=== PATIENT | female | born 1940 | race Caucasian/White ===

== ENCOUNTER 2017-08-17 16:48 | Inpatient (IN) | payer OTHER ==
[~2017-08-17] VITALS: Ht 160 cm; Wt 92.7 kg
[~2017-08-17 16:48] MED LIST: ABAT250V; ACET325 PO; ACET500 PO; ALBU90OI INH; ALBU90OI6 INH; ALLO100 PO; ALUM-MAG HYDRO360 ML PO; AMOX250 PO; ASPI81CH PO; Actos PO; CALACE667G PO; CALC.25 PO; CALCIUM ACETATE PO; CINA30 PO; CLAR500 PO; CYAN1000 PO; Calcium Carbon500 M1 PO; DIOVA; ELIQUIS2.5 MG PO; ERGO400 PO; FURO20 PO; FURO80 PO; GABA100 PO; GUAI600T33 PO; HUMALOG; INSLI100I SC; INSLI100I SUBQ; INSULANI SC; INSULANI SUBQ; INSULANPEN SC; LANTUS; LEVO750 PO; LEVSOD100 PO; LEVSOD75 PO; LISI5 PO; LOVA40 PO; Levaquin500 MG PO; Lopressor 25 mg25 MG PO; MAGCHL64ER PO; MAGNESIUM CHLORIDE PO; MIDO2.5 PO; MIDO5 PO; MULVITB PO; MYCO250 PO; Novolog100 UNIT/1 SC; OMEPRAZOLE; OMEPRAZOLE MAGN20 MG PO; OXYC5 PO; PANT20 PO; PRED5 PO; Pepcid40 MG PO; Questran4 GM PO; RXHYD5325 PO; SEVE800 PO; SEVEC800; SEVEC800 PO; SODBIC650 PO; Synthroid112 MCG PO; TACR1 PO; THYROID; Zithromax250 MG PO
[2017-08-17 17:45] LABS: BASOPHILS ABSOLUTE AUTO 0.01 K/mm3 (0.00-0.23); BASOPHILS PERCENT AUTO 0 % (0-2); EOSINOPHILS PERCENT AUTO 0 % (0-6); Hematocrit 29.4 % (33.0-51.0); IMMATURE GRAN PERCENT AUTO 4 % (0-1); LYMPHOCYTES ABSOLUTE AUTO 0.15 K/mm3 (0.84-5.20); LYMPHOCYTES PERCENT AUTO 2 % (21-46); MONOCYTES ABSOLUTE AUTO 0.16 K/mm3 (0.16-1.47); MONOCYTES PERCENT AUTO 2 % (4-13); Mean Corpuscular HGB 26.6 pg (26.0-34.0); Mean Corpuscular HGB Conc 30.6 g/dL (31.5-36.5); Mean Corpuscular Volume 87 fL (80-100); Mean Platelet Volume 10.5 fL (9.1-12.4); NEUTROPHILS ABSOLUTE AUTO 6.33 K/mm3 (1.96-9.15); NEUTROPHILS PERCENT AUTO 91 % (41-73); Platelet Count 236 K/mm3 (150-400); RDW Standard Deviation 56.7 fL (35.1-46.3); Red Blood Cell Count 3.38 M/mm3 (3.80-5.20); White Blood Cell Count 6.95 K/mm3 (4.00-11.30)
[2017-08-17 17:57] LABS: Source, Urine Clean Catch
[2017-08-17 18:07] LABS: Appearance, Urine Hazy (Clear); Bilirubin, Urine Neg (Neg); Blood, Urine 1+ (Neg); Color, Urine Yellow (P-Yellow); Glucose Qualitative, Urine Neg (Neg); Ketones, Urine Neg (Neg); Leukocyte Esterase, Urine 3+ (Neg); Nitrite, Urine Neg (Neg); Protein, Urine 2+ (Neg); Specific Gravity, Urine 1.015 (1.003-1.022); Urobilinogen, Urine NORM (Normal)
[2017-08-17 18:28] LABS: Alanine Aminotransfer (ALT/SGP 22 U/L (12-78); Albumin/Globulin Ratio 0.9 (0.8-1.8); Alk Phos 59 U/L (50-136); Anion Gap 16 mmol/L (6-16); Aspartate Aminotrans (AST/SGOT 9 U/L (12-37); Bilirubin, Total 0.3 mg/dL (0.1-1.0); Blood Urea Nitrogen 87 mg/dL (8-24); CO2, Blood 11 mmol/L (21-32); Calcium, Blood <5.0 mg/dL (8.5-10.1); Chloride, Blood 110 mmol/L (98-108); Creatinine, Blood 4.84 mg/dL (0.40-1.00); Globulin, Blood 3.2 g/dL (2.2-4.0); Glomerular Filtration Rate 9 (60-); Glucose, Blood 287 mg/dL (70-99); Magnesium, Blood 1.1 mg/dL (1.6-2.4); Phosphorus, Blood 4.9 mg/dL (2.5-4.9); Potassium, Blood 4.7 mmol/L (3.5-5.5); Sodium, Blood 137 mmol/L (136-145); Total Protein, Blood 6.2 g/dL (6.4-8.2)
[2017-08-17 18:31] LABS: Bacteria Many /hpf; Red Blood Cells, Urine 0-2 /hpf (0-2); Squamous Epithelial Cells Not Seen /hpf (Few); White Blood Cells, Urine TNTC /hpf (0-5)
[2017-08-17 21:56] LABS: Prothrombin Time Results 60.5 Sec (9.7-11.5)
[2017-08-17 22:15] LABS: International Normalized Ratio 5.52
[2017-08-17] MEDS ORDERED: FEBU40TA PO (23:19)
[2017-08-17] MEDS ORDERED: COLCRYS0.6 MG PO (23:20)
[2017-08-17] MEDS ORDERED: TACR1 PO (23:21)
[2017-08-17] MEDS ORDERED: GABA300 PO (23:22)
[2017-08-17] MEDS ORDERED: FOLI1 PO (23:23)
[2017-08-17] MEDS ORDERED: POTCHL10ER PO (23:23)
[2017-08-18 05:55] LABS: Prothrombin Time Results 73.3 Sec (9.7-11.5)
[2017-08-18 05:56] LABS: International Normalized Ratio 6.65
[2017-08-18 06:00] LABS: Creatinine, Urine Random 43.3 mg/dL (27.00-270.00)
[2017-08-18 06:13] LABS: Bun/Creatinine Ratio 18.6 (12.0-20.0); Creatinine, Blood 4.63 mg/dL (0.40-1.00); Potassium, Blood 4.5 mmol/L (3.5-5.5)
[2017-08-18 06:14] LABS: Calcium, Blood 5.3 mg/dL (8.5-10.1)
[2017-08-19 05:13] LABS: Hematocrit 24.4 % (33.0-51.0); Hemoglobin 7.6 g/dL (11.5-16.0)
[2017-08-19 05:32] LABS: Magnesium, Blood 1.6 mg/dL (1.6-2.4)
[2017-08-19 05:37] LABS: Prothrombin Time Results 59.9 Sec (9.7-11.5)
[2017-08-19 05:42] LABS: Albumin, Blood 2.5 g/dL (3.4-5.0); Anion Gap 12 mmol/L (6-16); Blood Urea Nitrogen 82 mg/dL (8-24); Bun/Creatinine Ratio 19.8 (12.0-20.0); CO2, Blood 19 mmol/L (21-32); Chloride, Blood 109 mmol/L (98-108); Creatinine, Blood 4.14 mg/dL (0.40-1.00); Glomerular Filtration Rate 11 (60-); Glucose, Blood 114 mg/dL (70-99); Phosphorus, Blood 3.7 mg/dL (2.5-4.9); Potassium, Blood 4.1 mmol/L (3.5-5.5); Sodium, Blood 140 mmol/L (136-145)
[2017-08-19 05:43] LABS: Calcium, Blood 5.5 mg/dL (8.5-10.1)
[2017-08-19 05:52] LABS: International Normalized Ratio 5.46
[2017-08-20 05:29] LABS: Hematocrit 26.2 % (33.0-51.0); Hemoglobin 8.2 g/dL (11.5-16.0)
[2017-08-20 05:47] LABS: International Normalized Ratio 2.6; Prothrombin Time Results 27.9 Sec (9.7-11.5)
[2017-08-20 05:51] LABS: Albumin, Blood 2.6 g/dL (3.4-5.0); Anion Gap 9 mmol/L (6-16); Blood Urea Nitrogen 76 mg/dL (8-24); Bun/Creatinine Ratio 22.4 (12.0-20.0); CO2, Blood 24 mmol/L (21-32); Calcium, Blood 6.7 mg/dL (8.5-10.1); Chloride, Blood 105 mmol/L (98-108); Glomerular Filtration Rate 14 (60-); Glucose, Blood 121 mg/dL (70-99); Magnesium, Blood 1.6 mg/dL (1.6-2.4); Phosphorus, Blood 2.7 mg/dL (2.5-4.9); Potassium, Blood 4.5 mmol/L (3.5-5.5); Sodium, Blood 138 mmol/L (136-145)
[2017-08-20 13:57] LABS: CMV DNA PCR Not Detected (NOTDET)
[2017-08-21 06:06] LABS: Hematocrit 27.8 % (33.0-51.0); Hemoglobin 8.6 g/dL (11.5-16.0)
[2017-08-21 06:20] LABS: International Normalized Ratio 1.76; Prothrombin Time Results 18.6 Sec (9.7-11.5)
[2017-08-21 06:27] LABS: Albumin, Blood 2.7 g/dL (3.4-5.0); Anion Gap 8 mmol/L (6-16); Blood Urea Nitrogen 62 mg/dL (8-24); Bun/Creatinine Ratio 21.7 (12.0-20.0); CO2, Blood 27 mmol/L (21-32); Calcium, Blood 7.6 mg/dL (8.5-10.1); Chloride, Blood 106 mmol/L (98-108); Creatinine, Blood 2.86 mg/dL (0.40-1.00); Glomerular Filtration Rate 17 (60-); Glucose, Blood 78 mg/dL (70-99); Magnesium, Blood 1.6 mg/dL (1.6-2.4); Phosphorus, Blood 1.7 mg/dL (2.5-4.9); Potassium, Blood 4.5 mmol/L (3.5-5.5); Sodium, Blood 141 mmol/L (136-145)
[2017-08-21] MEDS ORDERED: CEPH500 PO (11:41)
[2017-08-21] MEDS ORDERED: CALCIUM 500 +1 EAC3 PO (11:41)
[2017-08-21] MEDS ORDERED: WARF2 PO (11:42)
== END 2017-08-21 12:08 | disposition home or self-care (01) | DRG 683 ==
LOC: ER 16:48 → MEDS 18:40 → ENPENDDIS 08-21 11:00 → MEDS 08-21 12:08
PROVIDERS: Emergency Medicine; Internal Medicine; Internal Medicine Nephrology
DX: N17.9 Acute kidney failure, unspecified (principal); N39.0 Urinary tract infection, site not specified; E11.22 Type 2 diabetes mellitus with diabetic chronic kidney disease; E87.2 Acidosis; I48.0 Paroxysmal atrial fibrillation; E87.70 Fluid overload, unspecified; E88.09 Other disorders of plasma-protein metabolism, not elsewhere classified; E86.9 Volume depletion, unspecified; E83.39 Other disorders of phosphorus metabolism; E83.42 Hypomagnesemia; E83.51 Hypocalcemia; Z94.0 Kidney transplant status; N03.8 Chronic nephritic syndrome with other morphologic changes; D63.8 Anemia in other chronic diseases classified elsewhere; E21.3 Hyperparathyroidism, unspecified; E03.9 Hypothyroidism, unspecified; E78.5 Hyperlipidemia, unspecified; N18.9 Chronic kidney disease, unspecified; Z79.01 Long term (current) use of anticoagulants; Z79.899 Other long term (current) drug therapy; Z79.4 Long term (current) use of insulin; Z79.52 Long term (current) use of systemic steroids; Z87.891 Personal history of nicotine dependence
CPT/HCPCS: 36415; 51701; 70450; 71045; 76770; 80048; 80053; 80069; 80197; 81001; 82570; 82947; 83735; 84100; 84540; 85014; 85018; 85025; 85610; 86644; 86645; 87077; 87086; 87186; 87496; 93005; 93010; 96365; 96367; 96368; 97110; 97116; 97161; 97530; 99285; G8978; G8979; J0610; J0696; J0881; J1815; J3475; J7030; J7060; J7507; J7517

== ENCOUNTER 2017-09-08 12:44 | Emergency (ER) | payer OTHER ==
[~2017-09-08] VITALS: Ht 160 cm; Wt 90.7 kg
[~2017-09-08 12:44] MED LIST changes: +CALCIUM 500 +1 EAC3 PO; +CEPH500 PO; +COLCRYS0.6 MG PO; +FEBU40TA PO; +FOLI1 PO; +GABA300 PO; +POTCHL10ER PO; +WARF2 PO
[2017-09-08 14:34] LABS: Prothrombin Time Results 148.7 Sec (9.7-11.5)
[2017-09-08 17:00] LABS: International Normalized Ratio No Calc
== END 2017-09-08 17:07 | disposition home or self-care (01) ==
LOC: ER 12:44
PROVIDERS: Physician Assistant
DX: R79.1 Abnormal coagulation profile (principal); E11.9 Type 2 diabetes mellitus without complications; Z79.899 Other long term (current) drug therapy; Z79.4 Long term (current) use of insulin; Z79.01 Long term (current) use of anticoagulants
CPT/HCPCS: 36415; 85610; 99283

== ENCOUNTER → 2017-11-25 | Outpatient (CLI) | payer OTHER | LOC: LAB 16:35 → LAB SHORT 16:35 | DX: L08.9 Local infection of the skin and subcutaneous tissue, unspecified (principal); L89.319 Pressure ulcer of right buttock, unspecified stage; L89.329 Pressure ulcer of left buttock, unspecified stage | CPT/HCPCS: 87070; 87077; 87186; 87205 ==

== ENCOUNTER → 2018-01-27 | Outpatient (CLI) | payer OTHER | END | disposition home or self-care (01) | LOC: LAB 17:06 → LAB SHORT 17:06 | DX: L98.499 Non-pressure chronic ulcer of skin of other sites with unspecified severity (principal) | CPT/HCPCS: 87070; 87077; 87147; 87186; 87205 ==

== ENCOUNTER → 2019-02-06 | Outpatient (CLI) | payer OTHER | END | disposition home or self-care (01) | LOC: LAB SHORT 10:46 → OLS 10:46 | DX: E11.59 Type 2 diabetes mellitus with other circulatory complications (principal) | CPT/HCPCS: 82043 ==

== ENCOUNTER 2020-01-29 21:18 | Observation (INO) | payer OTHER ==
[~2020-01-29] VITALS: Ht 160 cm; Wt 86.4 kg
[~2020-01-29 21:18] MED LIST changes: +ALLEGRA ALLERGY60 MG PO; +Ativan1 MG PO; +BASAGLAR K100 UNIT/1 SC; +Calcium Acetat667 MG PO; -ERGO400 PO; -FEBU40TA PO; +FEBUXOSTAT80 MG PO; +Flonase 0.05% N16 GM; +LEVSOD112 PO; +NOVOLOG FL100 UNIT/3 SC; -Novolog100 UNIT/1 SC; +TACROLIMUS1 MG PO; +Vitamin D2000 UNIT PO
[2020-01-29 22:32] LABS: BASOPHILS ABSOLUTE AUTO 0.03 K/mm3 (0.00-0.23); BASOPHILS PERCENT AUTO 0 % (0-2); EOSINOPHILS ABSOLUTE AUTO 0.21 K/mm3 (0.00-0.68); EOSINOPHILS PERCENT AUTO 2 % (0-6); Hematocrit 39.6 % (33.0-51.0); Hemoglobin 12.4 g/dL (11.5-16.0); IMMATURE GRAN ABSOLUTE AUTO 0.03 K/mm3 (0.00-0.10); IMMATURE GRAN PERCENT AUTO 0 % (0-1); LYMPHOCYTES ABSOLUTE AUTO 0.63 K/mm3 (0.84-5.20); LYMPHOCYTES PERCENT AUTO 7 % (21-46); MONOCYTES ABSOLUTE AUTO 0.55 K/mm3 (0.16-1.47); MONOCYTES PERCENT AUTO 6 % (4-13); Mean Corpuscular HGB 30.5 pg (26.0-34.0); Mean Corpuscular HGB Conc 31.3 g/dL (31.5-36.5); Mean Corpuscular Volume 97 fL (80-100); NEUTROPHILS ABSOLUTE AUTO 7.81 K/mm3 (1.96-9.15); NEUTROPHILS PERCENT AUTO 84 % (41-73); Platelet Count 181 K/mm3 (150-400); RDW Coefficient Variation 15.8 % (11.7-14.2); RDW Standard Deviation 56.5 fL (35.1-46.3); Red Blood Cell Count 4.07 M/mm3 (3.80-5.20); White Blood Cell Count 9.26 K/mm3 (4.00-11.30)
[2020-01-29 22:52] LABS: Alanine Aminotransfer (ALT/SGP 14 U/L (12-78); Albumin, Blood 3.1 g/dL (3.4-5.0); Albumin/Globulin Ratio 0.9 (0.8-1.8); Alk Phos 56 U/L (50-136); Anion Gap 8 mmol/L (6-16); Aspartate Aminotrans (AST/SGOT 12 U/L (12-37); Bilirubin, Total 0.5 mg/dL (0.1-1.0); Blood Urea Nitrogen 50 mg/dL (8-24); Bun/Creatinine Ratio 9.7 (12.0-20.0); CO2, Blood 29 mmol/L (21-32); Calcium, Blood 8.8 mg/dL (8.5-10.1); Chloride, Blood 100 mmol/L (98-108); Creatinine, Blood 5.13 mg/dL (0.40-1.00); Globulin, Blood 3.6 g/dL (2.2-4.0); Glomerular Filtration Rate 9 (60-); Glucose, Blood 160 mg/dL (70-99); Magnesium, Blood 2.3 mg/dL (1.6-2.4); Potassium, Blood 4.6 mmol/L (3.5-5.5); Sodium, Blood 137 mmol/L (136-145); Total Protein, Blood 6.7 g/dL (6.4-8.2); Troponin I <0.015 ng/mL (0.000-0.040)
[2020-01-29] MEDS ORDERED: MIDO5 (23:16)
--- NOTE | 2020-01-30 05:18 | NUR ---
SHIFT SUMMARY PT ARRIVED FROM ER VIA STRETCHER; SLIDER SHEET USED TO TRANSFER PT TO BED; DAUGHTER AT BEDSIDE; PT A&O X4; NIKOLSKI AND VISUALLY IMPAIRED; VSS; NSR & AFIB NOTED ON TELE; HR 70'S; PT HAS HX AFIB & HEART MURMUR; O2 SATS >93 ON 4L NC; PT EDUCATED ON FALL PRECAUTIONS, UNIT PROTOCOL & CALL LIGHT; NS INFUSING @ 75; CALL LIGHT IN REACH; BED IN LOWEST POSITION; WILL CONTINUE TO MONITOR CLOSELY UNTIL HAND OFF TO DAY SHIFT RN.
[2020-01-30 07:02] LABS: BASOPHILS ABSOLUTE AUTO 0.05 K/mm3 (0.00-0.23); BASOPHILS PERCENT AUTO 0 % (0-2); EOSINOPHILS PERCENT AUTO 1 % (0-6); Hematocrit 38.1 % (33.0-51.0); Hemoglobin 11.8 g/dL (11.5-16.0); IMMATURE GRAN ABSOLUTE AUTO 0.07 K/mm3 (0.00-0.10); IMMATURE GRAN PERCENT AUTO 1 % (0-1); LYMPHOCYTES ABSOLUTE AUTO 1.04 K/mm3 (0.84-5.20); LYMPHOCYTES PERCENT AUTO 7 % (21-46); MONOCYTES ABSOLUTE AUTO 1.16 K/mm3 (0.16-1.47); MONOCYTES PERCENT AUTO 8 % (4-13); Mean Corpuscular Volume 97 fL (80-100); Mean Platelet Volume 9.9 fL (9.1-12.4); NEUTROPHILS ABSOLUTE AUTO 11.46 K/mm3 (1.96-9.15); NEUTROPHILS PERCENT AUTO 82 % (41-73); Platelet Count 162 K/mm3 (150-400); RDW Coefficient Variation 15.9 % (11.7-14.2); RDW Standard Deviation 56.9 fL (35.1-46.3); Red Blood Cell Count 3.93 M/mm3 (3.80-5.20); White Blood Cell Count 13.98 K/mm3 (4.00-11.30)
[2020-01-30 07:20] LABS: Alanine Aminotransfer (ALT/SGP 15 U/L (12-78); Albumin, Blood 2.8 g/dL (3.4-5.0); Albumin/Globulin Ratio 0.8 (0.8-1.8); Alk Phos 46 U/L (50-136); Anion Gap 8 mmol/L (6-16); Aspartate Aminotrans (AST/SGOT 12 U/L (12-37); Bilirubin, Total 0.6 mg/dL (0.1-1.0); Blood Urea Nitrogen 54 mg/dL (8-24); Bun/Creatinine Ratio 9.7 (12.0-20.0); CO2, Blood 29 mmol/L (21-32); CPK Creatine Kinase 18 U/L (26-193); Calcium, Blood 8.5 mg/dL (8.5-10.1); Chloride, Blood 99 mmol/L (98-108); Creatinine, Blood 5.59 mg/dL (0.40-1.00); Globulin, Blood 3.7 g/dL (2.2-4.0); Glomerular Filtration Rate 8 (60-); Glucose, Blood 154 mg/dL (70-99); Potassium, Blood 5.6 mmol/L (3.5-5.5); Sodium, Blood 136 mmol/L (136-145); Total Protein, Blood 6.5 g/dL (6.4-8.2); Troponin I <0.015 ng/mL (0.000-0.040)
[2020-01-30 15:11] LABS: CPK Creatine Kinase 71 U/L (26-193); Troponin I <0.015 ng/mL (0.000-0.040)
--- NOTE | 2020-01-30 19:47 | NUR ---
SUMMARY PT HAD DIALYSIS TODAY. SHE HAS C/O UPPER GASTRIC & SIDE PAIN THAT WAS RELIEVED BY MAALOX. PT DENIES BEING ABLE TO PASS GAS, REPORTS DECREASED APPETITE AND HAS REFUSED HER LANTUS. HYPOTENSION NOTED, SHE WAS MEDICATED PER EMAR ORDERED, PT ASYMPTOMATIC. FAMILY IS AT THE BEDSIDE. CALL LIGHT IN REACH.
[2020-01-31 04:22] LABS: Hematocrit 33.2 % (33.0-51.0); Hemoglobin 10.2 g/dL (11.5-16.0)
[2020-01-31 04:42] LABS: Albumin, Blood 2.6 g/dL (3.4-5.0); Anion Gap 8 mmol/L (6-16); Blood Urea Nitrogen 43 mg/dL (8-24); Bun/Creatinine Ratio 8.9 (12.0-20.0); CO2, Blood 30 mmol/L (21-32); Calcium, Blood 7.8 mg/dL (8.5-10.1); Chloride, Blood 94 mmol/L (98-108); Creatinine, Blood 4.84 mg/dL (0.40-1.00); Glomerular Filtration Rate 9 (60-); Glucose, Blood 105 mg/dL (70-99); Magnesium, Blood 2.5 mg/dL (1.6-2.4); Phosphorus, Blood 6.8 mg/dL (2.5-4.9); Potassium, Blood 4.6 mmol/L (3.5-5.5); Sodium, Blood 132 mmol/L (136-145)
--- NOTE | 2020-01-31 07:15 | NUR ---
SHIFT SUMMARY PT A&O; MILLE LACS & VISUALLY IMPAIRED; DAUGHER STAYED IN ROOM TO ASSIST; BP TRENDING UP; NSR NOTED ON TELE; O2 SATS >93 ON 4L NC; BLADDER SCAN PERFORMED EARLY IN SHIFT W/ 22ML NOTED; PO SNACKS & FLUIDS ENCOURAGED; CALL LIGHT IN REACH; BED IN LOWEST POSITION; REPORT GIVEN TO DAY SHIFT RN.
--- NOTE | 2020-01-31 13:28 | NUR ---
PT RETURNED FROM DIALYSIS C/O A HEADACHE & NAUSEA, HER VS ARE WITHIN HER NORMAL LIMITS, RESP UNLABORED AT THIS TIME. PCU FIRST OFFICER AND FLIGHT INSTRUCTOR AYESHA REPORTED THAT THE PT CONVERTED INTO AFIB WHILE IN DIALYSIS AT APROX 1115, THE RN WAS NOTIFIED, THE PT WAS SLEEPING & ASYMPTOMATIC AT THE TIME. SHE IS CURRENTLY RESTING IN BED, TYLENOL & ZOFRAN HAVE BEEN GIVEN PER PT REQUEST. HOSPITALIST HAS BEEN NOTIFIED OF CHANGE IN CONDITION, NO NEW ORDERS OBTAINED AT HTIS TIME. WCTM, PT'S DAUGHTER IS AT THE BEDSIDE, CALL LIGHT IN REACH.
--- NOTE | 2020-01-31 15:55 | NUR ---
UPDATE BP AT APPROXIMATELY 1500 IS 66/3 WITH HR 120'S. PT ALERT AND TALKING. DR. FORDE CALLED AND NOTIFIED. NEW ORDERS FOR 500ML BOLUS AND TO GIVE IV LOPRESSOR AFTER BOULS. BOLUS GIVEN AND BP IMPROVED WITH SBP >100. IV LOPRESSOR GIVEN. HR IMPROVED TO 100-110 AT THIS TIME. BP STABLE. WILL CONTINUE TO MONITOR CLOSELY.
--- NOTE | 2020-01-31 18:19 | NUR ---
UPDATE PT CONTINUES TO BE A&0, BP IS STABLE AT THIS TIME, PT REMAINS IN AFIB WITH HR BETWEEN 120'S-130'S. PT STATES HER HEADACHE IS IMPROVING, DENIES CP, SHE IS RELAXING IN BED VISITING WITH HER DAUGHTER, SHE IS GOING TO ATTEMPT TO EAT SOME DINNER. CALL LIGHT IN REACH. PT ENC TO CALL IF SHE FEELS ANY CHANGES, WCTM AND REPORT TO TYLER WALLACE.
[2020-02-01 04:20] LABS: Hematocrit 32.5 % (33.0-51.0); Hemoglobin 9.9 g/dL (11.5-16.0)
[2020-02-01 04:54] LABS: Magnesium, Blood 2.3 mg/dL (1.6-2.4)
[2020-02-01 04:55] LABS: Albumin, Blood 2.5 g/dL (3.4-5.0); Anion Gap 7 mmol/L (6-16); Blood Urea Nitrogen 31 mg/dL (8-24); Bun/Creatinine Ratio 7.5 (12.0-20.0); CO2, Blood 30 mmol/L (21-32); Calcium, Blood 7.5 mg/dL (8.5-10.1); Chloride, Blood 98 mmol/L (98-108); Creatinine, Blood 4.11 mg/dL (0.40-1.00); Glomerular Filtration Rate 11 (60-); Glucose, Blood 96 mg/dL (70-99); Phosphorus, Blood 5.6 mg/dL (2.5-4.9); Potassium, Blood 4.2 mmol/L (3.5-5.5); Sodium, Blood 135 mmol/L (136-145)
--- NOTE | 2020-02-01 04:55 | NUR ---
NOTIFIED DR CURRIE OF PT C/O NEW ONSET ABDOMINAL PAIN (01/16). DENIES N/V. LAST BM 01/30. PAINT TO PALPATION. POSITIVE BOWEL SOUNDS
--- NOTE | 2020-02-01 06:51 | NUR ---
patient was admitted for chest pain and was ruled out for pericarditis and a PE. The patient's blood pressure's were normal low and at times just under normal limit with systolic blood pressure's in the 80s. Overall the patient maintained her blood pressure and this improved by the end of the night. The patient did have an acute event of abdominal pain in the right lower quadrant, which Dr. Quezada was notified. I'll suggest for dayshift to keep a close eye on this new onset of pain and consider a CT if there is no improvement. Patient denied N/V and has had a recent bowel movement. No other changes overnight.
--- NOTE | 2020-02-01 08:45 | NUR ---
INITIAL ASSESSMENT PATIENT RESTING IN BED QUIETLY UPON ENTERING ROOM. DAUGHTER AT BEDSIDE. PATIENT ALERT AND ORIENTED X 4. TEMP OF 99.2 DEGREES FAHRENHEIT. PATIENT REPORTS TINGLING IN HANDS. PATIENT WEAK BUT ABLE TO MOVE ALL EXTREMITIES. PATIENT 1 PA WITH FWW. LUNGS CLEAR T/O, DIMINISHED IN LOWER LOBES. PATIENT DECREASED FROM 3 L NC TO 2 L NC AND REMAINS SATTING 90% AND GREATER. PATIENT IN SR, HR IN THE 70S. BP 92/40. GI WNL. PATIENT OLIGURIC; STATES SHE MAY URINATE ONCE A DAY. BRUISES SCATTERED TO BUES. LEFT UPPER ARM FISTULA NOTED; + BRUIT AND THRILL. COCCYX REDDENED AND ULCER NOTED. MEPILEX CLEAN/ DRY/ INTACT. IVS FLUSHED AND SALINE LOCKED. BED LOW, CALL LIGHT IN REACH. WILL CONTINUE TO MONITOR PATIENT T/O SHIFT.
--- NOTE | 2020-02-01 12:15 | NUR ---
PATIENT AFEBRILE. PATIENT DECREASED TO 1 L NC AND REMAINS SATTING 90% AND GREATER. BP 108/ 57, HR IN THE 70S. NO OTHER ACUTE CHANGES TO NOTE ON AT THIS TIME.
--- NOTE | 2020-02-01 15:35 | NUR ---
PATIENT AFEBRILE. HR 70. SBP 105/50. SATTING 90% AND GREATER ON 1 L NC. NO OTHER ACUTE CHANGES TO NOTE ON AT THIS TIME. WILL CONTINUE TO MONITOR.
--- NOTE | 2020-02-01 18:45 | NUR ---
SHIFT SUMMARY PATIENT REMAINED ALERT AND ORIENTED X 4 T/O SHIFT. PATIENT HAD TMAX OF 99.2 DEGREES FAHRENHEIT. PATIENT REMAINED 1 PA WITH FWW. PATIENT DECREASED FROM 3 L NC AT BEGINNING OF SHIFT TO 1 L NC BY END OF SHIFT. TRIED TO TITRATE DOWN TO RA BUT WOULD NOT REMAIN 90% AND ABOVE ON O2 SATURATIONS. PATIENT REMAINED IN SR, HR IN THE 70S. SBP 90S TO LOW 100S. PATIENT HAD SOFT, BROWN BM THIS SHIFT. PATIENT HAD POOR APPETITE. PATIENT OLIGURIC. PATIENT STATED THAT SHE DID VOID ONCE TODAY. NO CHANGE TO SKIN. PATIENT REPOSITIONED THROUGHOUT SHIFT. BED LOW, CALL LIGHT IN REACH, DAUGHTER AT BEDSIDE. PATIENT HAS NO COMPLAINTS AT THIS TIME. REPORT WILL BE GIVEN TO ONCOMING POWER SAW OPERATOR NURSE SHORTLY.
[2020-02-02 04:44] LABS: Hematocrit 30.8 % (33.0-51.0); Hemoglobin 9.5 g/dL (11.5-16.0)
[2020-02-02 05:09] LABS: Albumin, Blood 2.4 g/dL (3.4-5.0); Anion Gap 10 mmol/L (6-16); Blood Urea Nitrogen 45 mg/dL (8-24); Bun/Creatinine Ratio 7.9 (12.0-20.0); CO2, Blood 27 mmol/L (21-32); Calcium, Blood 7.6 mg/dL (8.5-10.1); Chloride, Blood 96 mmol/L (98-108); Creatinine, Blood 5.68 mg/dL (0.40-1.00); Glomerular Filtration Rate 8 (60-); Glucose, Blood 91 mg/dL (70-99); Magnesium, Blood 2.4 mg/dL (1.6-2.4); Phosphorus, Blood 6.4 mg/dL (2.5-4.9); Potassium, Blood 4.3 mmol/L (3.5-5.5); Sodium, Blood 133 mmol/L (136-145)
--- NOTE | 2020-02-02 06:51 | NUR ---
patient was admitted for chest pain and was ruled out for pericarditis and a PE. The patient was normotensive all shift. Overall the patient maintained her blood pressure and this improved by the end of the night. No other changes overnight. No acute changes. Plan is for patient to have dialysis today.
[2020-02-02] MEDS ORDERED: Amiodarone HCl200 MG PO (13:11)
[2020-02-02] MEDS ORDERED: ELIQUIS2.5 MG PO (13:12)
--- NOTE | 2020-02-02 17:09 | NUR ---
DISCHARGE SUMMARY PT A&Ox3; CALM AND COOPERATIVE WITH CARE. PT RESTING IN BED DURING SHIFT. UP TO BSC WITH 1 PERSON ASSIST WITH WALKER. PT REPORTS NULL T/O SHIFT; MEDICATED x2 WITH TYLENOL WITH POSITIVE RESULTS. PT SOB WITH EXERTION. PT SPO2 >90% ON RA; SPO2 86-87% ON RA WITH MINIMAL ACTIVITY; HOME O2 EVAL COMPLETED; PT PLACED ON 2L O2 VIA NC FOR ACTIVITY. [facility] DROPPED OFF PORTABLE O2 TANK FOR DISCHARGE. PT HAD DIALYSIS THIS AM. OTHER VSS. NO OTHER ACUTE CHANGES NOTED DURING SHIFT. PT AND DAUGHTER EDUCATED ON DISCHARGE INSTRUCTIONS, FOLLOW UP APPOINTMENTS AND MEDICATIONS (AMIODARONE TITRATION AND ELIQUIS ARE NEW). MEDICATED FAXED OVER TO [facility] PER DAUGHTER'S REQUEST. PT LEFT ROOM VIA WHEELCHAIR AT 1640.
== END 2020-02-02 16:40 | disposition home or self-care (01) ==
LOC: ER 21:18 → PCU 21:19
PROVIDERS: Emergency Medicine; Internal Medicine Nephrology; ADMIT Internal Medicine
DX: R07.89 Other chest pain (principal); I48.0 Paroxysmal atrial fibrillation; I35.0 Nonrheumatic aortic (valve) stenosis; I13.2 Hypertensive heart and chronic kidney disease with heart failure and with stage 5 chronic kidney disease, or end stage renal disease; I08.3 Combined rheumatic disorders of mitral, aortic and tricuspid valves; I37.1 Nonrheumatic pulmonary valve insufficiency; I27.20 Pulmonary hypertension, unspecified; E11.22 Type 2 diabetes mellitus with diabetic chronic kidney disease; N18.6 End stage renal disease; I50.32 Chronic diastolic (congestive) heart failure; J96.01 Acute respiratory failure with hypoxia; E03.9 Hypothyroidism, unspecified; D63.1 Anemia in chronic kidney disease; K21.9 Gastro-esophageal reflux disease without esophagitis; E78.5 Hyperlipidemia, unspecified; E83.42 Hypomagnesemia; Z99.2 Dependence on renal dialysis; Z94.0 Kidney transplant status; Z79.899 Other long term (current) drug therapy; Z79.4 Long term (current) use of insulin
CPT/HCPCS: 36415; 71046; 71275; 74175; 80053; 80069; 82550; 82947; 83605; 83690; 83735; 84443; 84484; 85014; 85018; 85025; 85379; 85651; 86141; 93005; 93010; 93306; 94761; 96361; 96372; 96374-59; 96375; 96375-59; 96376; 99285-25; A9270; A9270-GY; G0257; G0378; J0881; J1644; J2270; J2405; J3010; J7030; J7040; J7507; J7512; Q9967

== ENCOUNTER 2020-02-23 15:37 | Observation (INO) | payer OTHER ==
[~2020-02-23] VITALS: Ht 154.9 cm; Wt 85.3 kg
[~2020-02-23 15:37] MED LIST changes: +Amiodarone HCl200 MG PO; +FURO40 PO; +OMEP20ER PO; -OMEPRAZOLE MAGN20 MG PO
[2020-02-23 18:18] LABS: BASOPHILS ABSOLUTE AUTO 0.02 K/mm3 (0.00-0.23); BASOPHILS PERCENT AUTO 0 % (0-2); EOSINOPHILS PERCENT AUTO 1 % (0-6); Hematocrit 28.3 % (33.0-51.0); Hemoglobin 8.7 g/dL (11.5-16.0); IMMATURE GRAN ABSOLUTE AUTO 0.06 K/mm3 (0.00-0.10); IMMATURE GRAN PERCENT AUTO 1 % (0-1); LYMPHOCYTES ABSOLUTE AUTO 0.47 K/mm3 (0.84-5.20); LYMPHOCYTES PERCENT AUTO 6 % (21-46); MONOCYTES ABSOLUTE AUTO 0.68 K/mm3 (0.16-1.47); MONOCYTES PERCENT AUTO 9 % (4-13); Mean Corpuscular HGB 29.8 pg (26.0-34.0); Mean Corpuscular HGB Conc 30.7 g/dL (31.5-36.5); Mean Corpuscular Volume 97 fL (80-100); Mean Platelet Volume 9.8 fL (9.1-12.4); NEUTROPHILS ABSOLUTE AUTO 6.56 K/mm3 (1.96-9.15); NEUTROPHILS PERCENT AUTO 83 % (41-73); Platelet Count 150 K/mm3 (150-400); RDW Coefficient Variation 14.6 % (11.7-14.2); RDW Standard Deviation 51.8 fL (35.1-46.3); Red Blood Cell Count 2.92 M/mm3 (3.80-5.20); White Blood Cell Count 7.89 K/mm3 (4.00-11.30)
[2020-02-23 18:42] LABS: Alanine Aminotransfer (ALT/SGP 13 U/L (12-78); Albumin, Blood 2.9 g/dL (3.4-5.0); Albumin/Globulin Ratio 0.9 (0.8-1.8); Alk Phos 62 U/L (50-136); Anion Gap 9 mmol/L (6-16); Aspartate Aminotrans (AST/SGOT 8 U/L (12-37); Bilirubin, Total 0.3 mg/dL (0.1-1.0); Blood Urea Nitrogen 39 mg/dL (8-24); CO2, Blood 33 mmol/L (21-32); Calcium, Blood 8.7 mg/dL (8.5-10.1); Chloride, Blood 96 mmol/L (98-108); Globulin, Blood 3.3 g/dL (2.2-4.0); Glomerular Filtration Rate 16 (60-); Glucose, Blood 202 mg/dL (70-99); Potassium, Blood 3.7 mmol/L (3.5-5.5); Sodium, Blood 138 mmol/L (136-145); Total Protein, Blood 6.2 g/dL (6.4-8.2); Troponin I <0.015 ng/mL (0.000-0.040)
[2020-02-23] MEDS ORDERED: ALLEGRA ALLERGY60 MG PO (19:20)
[2020-02-23] MEDS ORDERED: FLUT.05NI (19:20)
--- NOTE | 2020-02-24 00:13 | NUR ---
CALL TO DR. DYER PER HIS REQUEST. NEW ORDERS FOR RENAL PANEL, H/H, MG+. ADD ARANESP 60MCG QOW AND HOLD FOR HCT >32. PT ADDED TO DR. DYER'S LIST TO BE SEEN.
[2020-02-24] MEDS ORDERED: Rena-Vite Tabl0.8 MG PO (01:42)
--- NOTE | 2020-02-24 05:19 | NUR ---
SHIFT SUMMARY: ER ADMIT. AAOX4. ABLE TO COMMUNICATE NEEDS. PT LEGALLY BLIND AND ACCOMPANIED BY HER DAUGHTER. REPORTS NECK PAIN 4/10 UPON ARRIVAL. STATES THIS IS TOLERABLE. K-PAD APPLIED TO UPPER SHOULDERS/NECK. ASSISTED PT W/POSITIONING FOR COMFORT. PT REPORTING NEW ONSET R HIP/R LOW BACK PAIN- REPOSITIONED. STATES PAIN IS DULL AND ACHEY AND FEELS MORE SUPERFICIAL. NO VISIBLE ABNORMALITIES ON SKIN IN THIS LOCATION. TORADOL GIVEN. PT STATES HELPS SOME. PT DENIES N/T IN HANDS, REPORTS NEUROPATHY AFFECTING FEET. NSR, 1ST DEGREE HEART BLOCK, RATE 64 PER TELE CRIME LAB TECHNICIAN. BRUIT AND THRILL PRESENT IN L ARM FISTULA SITE. NO ACUTE CONCERNS AT THIS TIME. WILL CONT TO MONITOR.
[2020-02-24 05:20] LABS: BASOPHILS ABSOLUTE AUTO 0.03 K/mm3 (0.00-0.23); BASOPHILS PERCENT AUTO 1 % (0-2); EOSINOPHILS ABSOLUTE AUTO 0.18 K/mm3 (0.00-0.68); EOSINOPHILS PERCENT AUTO 3 % (0-6); Hematocrit 27.8 % (33.0-51.0); Hemoglobin 8.4 g/dL (11.5-16.0); IMMATURE GRAN ABSOLUTE AUTO 0.05 K/mm3 (0.00-0.10); IMMATURE GRAN PERCENT AUTO 1 % (0-1); LYMPHOCYTES ABSOLUTE AUTO 0.94 K/mm3 (0.84-5.20); LYMPHOCYTES PERCENT AUTO 15 % (21-46); MONOCYTES ABSOLUTE AUTO 0.51 K/mm3 (0.16-1.47); MONOCYTES PERCENT AUTO 8 % (4-13); Mean Corpuscular HGB 29.6 pg (26.0-34.0); Mean Corpuscular HGB Conc 30.2 g/dL (31.5-36.5); Mean Corpuscular Volume 98 fL (80-100); Mean Platelet Volume 9.6 fL (9.1-12.4); NEUTROPHILS ABSOLUTE AUTO 4.74 K/mm3 (1.96-9.15); NEUTROPHILS PERCENT AUTO 73 % (41-73); Platelet Count 154 K/mm3 (150-400); RDW Coefficient Variation 14.7 % (11.7-14.2); RDW Standard Deviation 53.2 fL (35.1-46.3); Red Blood Cell Count 2.84 M/mm3 (3.80-5.20); White Blood Cell Count 6.45 K/mm3 (4.00-11.30)
[2020-02-24 05:44] LABS: Alanine Aminotransfer (ALT/SGP 9 U/L (12-78); Albumin, Blood 2.7 g/dL (3.4-5.0); Albumin/Globulin Ratio 0.8 (0.8-1.8); Alk Phos 40 U/L (50-136); Anion Gap 5 mmol/L (6-16); Aspartate Aminotrans (AST/SGOT 12 U/L (12-37); Bilirubin, Total 0.4 mg/dL (0.1-1.0); Blood Urea Nitrogen 46 mg/dL (8-24); Bun/Creatinine Ratio 12.2 (12.0-20.0); CO2, Blood 36 mmol/L (21-32); Calcium, Blood 8.1 mg/dL (8.5-10.1); Chloride, Blood 94 mmol/L (98-108); Creatinine, Blood 3.78 mg/dL (0.40-1.00); Globulin, Blood 3.3 g/dL (2.2-4.0); Glomerular Filtration Rate 12 (60-); Glucose, Blood 120 mg/dL (70-99); Magnesium, Blood 2.4 mg/dL (1.6-2.4); Sodium, Blood 135 mmol/L (136-145)
--- NOTE | 2020-02-24 18:39 | NUR ---
SHIFT SUMMARY PT A/O X4, PLEASANT AND COOPERATIVE WITH CARE. 1 ASSIST IN THE ROOM/BSC. OFTEN HAS LOW BP'S AND HAS MIDODRINE ORDERED. HAD DIALYSIS TODAY. HAD X RAY ON R HIP DUE TO NEW ONSET PAIN. K PAD TO NECK AND BACK AND MEDICATED PER EMR FOR PAIN. ON 2 L O2 VIA NC AT BASELINE. LEGALLY BLIND AND NELSON LAGO[place] IN THE R EAR. WILL CONTINUE TO MONITOR.
[2020-02-24] MEDS ORDERED: GABA300 PO (23:45)
--- NOTE | 2020-02-25 04:42 | NUR ---
SHIFT SUMMARY: VSS. AFEB. AAOX3. DAUGHTER AT BEDSIDE. SBP 95, MIDODRINE GIVEN PER ORDER. PT STATES BOTH NECK AND R HIP PAIN IMPROVED. MED W/ ULTRAM X1 AND K-PAD TO NECK. B TILE SPRAYER/PUSHES/PULLS ALL EQUAL. NEUROPATHY AFFECTING B HANDS AND FEET, PT DENIES NEW N/T. PT APPEARS TO HAVE SLEPT WELL MOST OF NIGHT. AV FISTULA TO R ARM W/+THRILL AND BRUIT. NO ACUTE CONCERNS AT THIS TIME. WILL CONT TO MONITOR.
[2020-02-25 05:22] LABS: Hematocrit 25.9 % (33.0-51.0); Hemoglobin 7.7 g/dL (11.5-16.0)
[2020-02-25 05:38] LABS: Albumin, Blood 2.6 g/dL (3.4-5.0); Anion Gap 4 mmol/L (6-16); Blood Urea Nitrogen 34 mg/dL (8-24); CO2, Blood 34 mmol/L (21-32); Calcium, Blood 7.8 mg/dL (8.5-10.1); Chloride, Blood 100 mmol/L (98-108); Creatinine, Blood 3.41 mg/dL (0.40-1.00); Glomerular Filtration Rate 14 (60-); Glucose, Blood 87 mg/dL (70-99); Magnesium, Blood 2.2 mg/dL (1.6-2.4); Phosphorus, Blood 3.7 mg/dL (2.5-4.9); Potassium, Blood 4.2 mmol/L (3.5-5.5); Sodium, Blood 138 mmol/L (136-145)
[2020-02-25] MEDS ORDERED: TRAM50 PO (11:51)
--- NOTE | 2020-02-25 13:07 | NUR ---
PATIENT DISCHARGED AT 1306 WITH HOME HEALTH
== END 2020-02-25 13:03 | disposition home health service (06) ==
LOC: ER 15:37 → MEDS 15:38 → ENPENDDIS 02-25 10:32 → MEDS 02-25 13:03
PROVIDERS: Internal Medicine Nephrology; Physician Assistant; ADMIT Internal Medicine
DX: M16.0 Bilateral primary osteoarthritis of hip (principal); I35.0 Nonrheumatic aortic (valve) stenosis; M47.812 Spondylosis without myelopathy or radiculopathy, cervical region; E11.22 Type 2 diabetes mellitus with diabetic chronic kidney disease; I13.2 Hypertensive heart and chronic kidney disease with heart failure and with stage 5 chronic kidney disease, or end stage renal disease; N18.6 End stage renal disease; I50.32 Chronic diastolic (congestive) heart failure; D63.1 Anemia in chronic kidney disease; F41.9 Anxiety disorder, unspecified; E03.9 Hypothyroidism, unspecified; E78.5 Hyperlipidemia, unspecified; E83.42 Hypomagnesemia; Z79.899 Other long term (current) drug therapy; Z79.01 Long term (current) use of anticoagulants; Z99.2 Dependence on renal dialysis; Z79.4 Long term (current) use of insulin; Z94.0 Kidney transplant status; I87.1 Compression of vein
CPT/HCPCS: 36415; 36430; 70498; 71046; 73502; 80053; 80069; 82947; 83735; 84100; 84484; 85014; 85018; 85025; 86850; 86900; 86901; 86923; 93005; 93010; 96374; 96375; 97110; 97162; 99285-25; A9270-GY; G0257; G0378; J0881; J1885; J7030; J7120; J7507; J7512; P9016; Q9967

== ENCOUNTER 2020-03-01 10:48 | Inpatient (IN) | payer OTHER ==
[~2020-03-01] VITALS: Ht 154.9 cm; Wt 94.2 kg
[~2020-03-01 10:48] MED LIST changes: +FLUT.05NI; +Rena-Vite Tabl0.8 MG PO; +TRAM50 PO
[2020-03-01] MEDS ORDERED: Meribin5 MG PO (12:04)
[2020-03-01 12:55] LABS: Chloride (POC) 93 mmol/L (98-108); Glucose (ISTAT POC) 122 mg/dL (70-99); Hemoglobin (POC) 5.8 g/dL (12.0-16.0); Potassium (POC) 3.4 mmol/L (3.5-5.5); Sodium (POC) 135 mmol/L (135-148); Total CO2 (POC) 30 mmol/L (21-32)
[2020-03-01 13:47] LABS: BASOPHILS ABSOLUTE AUTO 0.02 K/mm3 (0.00-0.23); BASOPHILS PERCENT AUTO 0 % (0-2); EOSINOPHILS PERCENT AUTO 3 % (0-6); Hematocrit 20.1 % (33.0-51.0); Hemoglobin 6.1 g/dL (11.5-16.0); IMMATURE GRAN ABSOLUTE AUTO 0.07 K/mm3 (0.00-0.10); IMMATURE GRAN PERCENT AUTO 1 % (0-1); LYMPHOCYTES ABSOLUTE AUTO 0.67 K/mm3 (0.84-5.20); LYMPHOCYTES PERCENT AUTO 9 % (21-46); MONOCYTES ABSOLUTE AUTO 0.47 K/mm3 (0.16-1.47); MONOCYTES PERCENT AUTO 7 % (4-13); Mean Corpuscular HGB 29.9 pg (26.0-34.0); Mean Corpuscular HGB Conc 30.3 g/dL (31.5-36.5); Mean Corpuscular Volume 99 fL (80-100); Mean Platelet Volume 10.1 fL (9.1-12.4); NEUTROPHILS ABSOLUTE AUTO 5.73 K/mm3 (1.96-9.15); NEUTROPHILS PERCENT AUTO 80 % (41-73); NRBC ABSOLUTE 0.02 K/mm3 (0.00-0.02); NRBC Auto 0.3 /100 WBC (0.0-0.2); Platelet Count 155 K/mm3 (150-400); RDW Coefficient Variation 16.1 % (11.7-14.2); RDW Standard Deviation 57.1 fL (35.1-46.3); Red Blood Cell Count 2.04 M/mm3 (3.80-5.20); White Blood Cell Count 7.16 K/mm3 (4.00-11.30)
[2020-03-01 14:01] LABS: Albumin, Blood 2.6 g/dL (3.4-5.0); Albumin/Globulin Ratio 0.9 (0.8-1.8); Bilirubin, Total 0.4 mg/dL (0.1-1.0); Bun/Creatinine Ratio 11.8 (12.0-20.0); Calcium, Blood 8.8 mg/dL (8.5-10.1); Creatinine, Blood 2.72 mg/dL (0.40-1.00); Globulin, Blood 2.9 g/dL (2.2-4.0); Potassium, Blood 3.4 mmol/L (3.5-5.5); Total Protein, Blood 5.5 g/dL (6.4-8.2)
[2020-03-01 14:04] LABS: International Normalized Ratio 1.02; Prothrombin Time Results 10.9 Sec (9.7-11.5)
[2020-03-01] MEDS ORDERED: NOVOLOG FL100 UNIT/3 SC (15:07)
--- NOTE | 2020-03-01 19:00 | NUR ---
ASSUMED CARE OF PATIENT. REC'D. REPORT FROM DAY SHIFT RN. PATIENT FINISHING SECOND UNIT OF PRBC'S. MAP 20-30'S. PATIENT RECEIVING NS BOLUS 500CC IV. DAYSHIFT RN CALLED RODRIGO PENDLETON; REC'D. ORDER FOR MIDODRINE 5MG PO NOW; STATES SHE WILL EVAL PATIENT. 1914: SECOND UNIT OF BLOOD FINISHED INFUSING. 1929: MAP NOW 50-60'S. LEWIS PENDLETON AT BEDSIDE. 1949: REPEAT CBC SENT. 2029: CALLED LEWIS PENDLETON WITH REPEAT CBC RESULTS; REC'D. ORDER FOR REPEAT CBC AT MIDNIGHT.
--- NOTE | 2020-03-01 19:35 | NUR ---
SUMMARY Assumed care of pt upon arrival to unit at 1710 from emergency department. Transferred from ED [facility] to ICU bed using slider sheet and three staff. Pt A&O x 2. Answers questions, follows commands, verbalizes needs. 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 Pt on 3 LPM NC, which is her baseline O2 use. Lungs clear t/o, dim in bases. SR per monitor. BP initially low/normal. Pt arrived with one unit PRBCs infusing. Second unit started. No signs of transfusion reaction. One smear bowel movement cleaned from pt. Dark brown. No fahad blood. No hematemesis. No adominal pain. Pt states she still produces urine, more urine on non-hemodialysis days. Pt has stage two pressure ulcer on left buttock. Photographed. Pt states this is an old, and she has had it for several years. Pt suddenly became hypotensive. Remains alert. Reports some dizziness. radio interference trouble shooter hospitalist, Milena, notified. Orders recevied for bolus. Admitting hosptialist also contacted, ordered more midodrine. Dr Hodges in to see pt. No additional orders from this provider. Report given to oncoming RN, Ivett. Pt's daughter, Margaret, assisted with admit. Pt lives with this daughter. Discussed code status with pt and daughter, who reinfored full code wishes. Discussed pt's POLST on record that states DNR, pt wishes to be full code at this time.
[2020-03-01 20:10] LABS: BASOPHILS ABSOLUTE AUTO 0.04 K/mm3 (0.00-0.23); BASOPHILS PERCENT AUTO 1 % (0-2); EOSINOPHILS ABSOLUTE AUTO 0.27 K/mm3 (0.00-0.68); EOSINOPHILS PERCENT AUTO 4 % (0-6); Hematocrit 24.3 % (33.0-51.0); Hemoglobin 7.7 g/dL (11.5-16.0); IMMATURE GRAN PERCENT AUTO 2 % (0-1); LYMPHOCYTES ABSOLUTE AUTO 0.78 K/mm3 (0.84-5.20); LYMPHOCYTES PERCENT AUTO 12 % (21-46); MONOCYTES ABSOLUTE AUTO 0.61 K/mm3 (0.16-1.47); MONOCYTES PERCENT AUTO 9 % (4-13); Mean Corpuscular HGB 30.7 pg (26.0-34.0); Mean Corpuscular HGB Conc 31.7 g/dL (31.5-36.5); Mean Corpuscular Volume 97 fL (80-100); Mean Platelet Volume 9.8 fL (9.1-12.4); NEUTROPHILS ABSOLUTE AUTO 4.82 K/mm3 (1.96-9.15); NEUTROPHILS PERCENT AUTO 73 % (41-73); NRBC ABSOLUTE 0.02 K/mm3 (0.00-0.02); NRBC Auto 0.3 /100 WBC (0.0-0.2); Platelet Count 127 K/mm3 (150-400); RDW Coefficient Variation 15.7 % (11.7-14.2); RDW Standard Deviation 53.6 fL (35.1-46.3); Red Blood Cell Count 2.51 M/mm3 (3.80-5.20); White Blood Cell Count 6.62 K/mm3 (4.00-11.30)
--- NOTE | 2020-03-01 21:16 | NUR ---
DR. PICKARD HERE TO SEE PATIENT.
[2020-03-02 00:27] LABS: BASOPHILS ABSOLUTE AUTO 0.04 K/mm3 (0.00-0.23); BASOPHILS PERCENT AUTO 1 % (0-2); EOSINOPHILS ABSOLUTE AUTO 0.28 K/mm3 (0.00-0.68); EOSINOPHILS PERCENT AUTO 4 % (0-6); Hematocrit 22.5 % (33.0-51.0); Hemoglobin 7.2 g/dL (11.5-16.0); IMMATURE GRAN ABSOLUTE AUTO 0.07 K/mm3 (0.00-0.10); IMMATURE GRAN PERCENT AUTO 1 % (0-1); LYMPHOCYTES ABSOLUTE AUTO 0.71 K/mm3 (0.84-5.20); LYMPHOCYTES PERCENT AUTO 10 % (21-46); MONOCYTES ABSOLUTE AUTO 0.59 K/mm3 (0.16-1.47); MONOCYTES PERCENT AUTO 9 % (4-13); Mean Corpuscular HGB 30.8 pg (26.0-34.0); Mean Corpuscular Volume 96 fL (80-100); Mean Platelet Volume 10.4 fL (9.1-12.4); NEUTROPHILS ABSOLUTE AUTO 5.19 K/mm3 (1.96-9.15); NEUTROPHILS PERCENT AUTO 75 % (41-73); NRBC ABSOLUTE 0.03 K/mm3 (0.00-0.02); NRBC Auto 0.4 /100 WBC (0.0-0.2); Platelet Count 133 K/mm3 (150-400); RDW Coefficient Variation 16.1 % (11.7-14.2); RDW Standard Deviation 54.8 fL (35.1-46.3); Red Blood Cell Count 2.34 M/mm3 (3.80-5.20); White Blood Cell Count 6.88 K/mm3 (4.00-11.30)
[2020-03-02 04:13] LABS: Hematocrit 21.2 % (33.0-51.0); Hemoglobin 6.7 g/dL (11.5-16.0); Mean Corpuscular HGB 30.5 pg (26.0-34.0); Mean Corpuscular HGB Conc 31.6 g/dL (31.5-36.5); Mean Corpuscular Volume 96 fL (80-100); NRBC ABSOLUTE 0.03 K/mm3 (0.00-0.02); NRBC Auto 0.4 /100 WBC (0.0-0.2); Platelet Count 129 K/mm3 (150-400); RDW Coefficient Variation 16.3 % (11.7-14.2); RDW Standard Deviation 55.5 fL (35.1-46.3)
--- NOTE | 2020-03-02 04:20 | NUR ---
CALLED DR. CURRIE WITH AM CBC RESULTS. REC'D. ORDER TO TRANSFUSE ONE UNIT OF PRBC'S.
[2020-03-02 04:29] LABS: Albumin, Blood 2.3 g/dL (3.4-5.0); Anion Gap 4 mmol/L (6-16); Blood Urea Nitrogen 53 mg/dL (8-24); Bun/Creatinine Ratio 14.1 (12.0-20.0); CO2, Blood 33 mmol/L (21-32); Calcium, Blood 8.5 mg/dL (8.5-10.1); Chloride, Blood 100 mmol/L (98-108); Creatinine, Blood 3.77 mg/dL (0.40-1.00); Glomerular Filtration Rate 12 (60-); Glucose, Blood 112 mg/dL (70-99); Magnesium, Blood 2.3 mg/dL (1.6-2.4); Phosphorus, Blood 2.9 mg/dL (2.5-4.9); Potassium, Blood 4.4 mmol/L (3.5-5.5); Sodium, Blood 137 mmol/L (136-145)
--- NOTE | 2020-03-02 06:23 | NUR ---
SHIFT SUMMARY: PATIENT SLEPT OFF AND ON DURING THE NIGHT. PATIENT C/O RLQ ABDOMINAL PAIN WHEN SHE TURNS OVER ONTO HER LEFT SIDE; STATES PAIN "LETS UP" WHEN SHE IS ON HER BACK. CBC DRAWN AT MIDNIGHT AND 0400; TRANSFUSING ONE UNIT OF PRBC'S PER MD ORDER. PATIENT HAD ONE BLACK, FORMED STOOL DURING THE NIGHT; DENIES NAUSEA. ANURIC. PROTONIX DRIP INFUSING AT 10CC/HR VIA IV TO RIGHT BREAST; SALINE LOCK TO RIGHT AC; POWERGLIDE TO RIGHT UPPER ARM. OXYGEN AT 2L/MIN VIA NASAL CANNULA; BREATH SOUNDS CLEAR TO BILATERAL UPPER LOBES. PER DR. PICKARD, PATIENT WILL HAVE EGD ON FRIDAY. AWAITING DAYSHIFT RN FOR HANDOFF.
--- NOTE | 2020-03-02 08:18 | NUR ---
Assumed care of pt at 0700. Bedside report received from Ivett WALLACE. Pt A&O x 4. Answers questions. Follows commands. Verbalizes needs. BP low-normal. Sinus rhythm, rate 60s. SpO2 90% or greater with 3 LPM NC. Fine crackles noted to RLL, RML, and LLL. Bed in lowest position. Call light in reach. Pt denies need at this time.
[2020-03-02 08:45] LABS: Hematocrit 24.4 % (33.0-51.0); Hemoglobin 7.8 g/dL (11.5-16.0)
--- NOTE | 2020-03-02 08:48 | NUR ---
Pt had a black, tarry smear BM. Attends changed. Wound to right buttock cleaned with Skintegrity skin cleanser and dressing changed.
[2020-03-02 12:03] LABS: Hematocrit 23.8 % (33.0-51.0); Hemoglobin 7.6 g/dL (11.5-16.0)
--- NOTE | 2020-03-02 13:01 | NUR ---
Pt visiting with daughter at bedside. No acute changes to initial assessment. Pt has protonix drip infusing at this time.
--- NOTE | 2020-03-02 13:30 | NUR ---
No additional melanotic stools. Discussed BP with Dr Nair, midodrine increased.
--- NOTE | 2020-03-02 17:49 | NUR ---
Initial spiritual care note: Mrs. Silva reports a strong, life-long juwan that sustains her. She feels well supported by her database designer and spiritism community. She denied concerns and expressed hope for full recovery. She was appreciaitve of prayer and spiritual encouragement. Artistic Director services will remain available.
--- NOTE | 2020-03-02 17:59 | NUR ---
SUMMARY Pt has not gotten OOB this shift due to hypotension. BP is improved this afternoon, after midodrine dose increased from 5 mg to 7.5 mg. SR per monitor. Pt remains on 3 LPM NC, which is her home oxygen use. Pt has not had urine void this shift. Will continue to closely monitor until care handoff and bedside report with oncoming RN.
[2020-03-02 18:07] LABS: Hematocrit 23.8 % (33.0-51.0); Hemoglobin 7.7 g/dL (11.5-16.0)
--- NOTE | 2020-03-02 19:15 | NUR ---
RECEIVING NOTE LYING IN SEMI FOWLERS WITH EYES CLOSED. AKIAK TO LEFT SIDE, AND IS LEGALLY BLIND, USES AN AMPLYFIER AND BOOKS ON TAPE PLAYER IN ONE. RESPIRATIONS EVEN AND UNLABORED ON O2 AT 3L/NC WHICH IS BASELINE. LUNG SOUNDS CLEAR BILATERALLY WITH FINE CRACKLES NOTED IN MIDDLE AND LOWER LOBES. MAINTAINING SP02 IN 90'S. HR REGULAR, SR-60'S RANGE. SL POWERGLIDE TO RIGHT UPPER ARM IS PATENT, FLUSHING WITH EASE AND GOOD BLOOD RETURN NOTED. ABD SOFT, NONDISTENDED, BUT TENDER TO PALPATION. CONTINENT OF BOWEL, USES BEDPAN. IS OLIGURIC, URINATES A SMALL AMOUNT OCCASIONALLY. REPORTED SMALL BM ON DAY SHIFT TODAY, DARK IN COLOR. IS TURNED Q2HRS FOR COMFORT. STAGE II PRESSURE ULCER TO RIGHT BUTTOCK NOTED WITH A FOUL SMELL. MEPILEX DRESSING IS C/D/I. WILL CHANGE PRN SOILING OR SATURATION. TO RIGHT DENIES PAIN, DISCOMFORT, OR FURTHER NEEDS AT THIS TIME. SAFETY MEASURES IN PLACE. WILL CONTINUE TO MONITOR.
--- NOTE | 2020-03-02 20:22 | NUR ---
DR PICKARD TO SEE PT. STATES SHE WILL HAVE EGD TOMORROW AFTERNOON. SAFETY MEASURES IN [place]. WILL CONTINUE TO MONITOR.
--- NOTE | 2020-03-02 20:30 | NUR ---
DR. PICKARD AT BEDSIDE WITH PT. EXPLAINED POC WITH EGD IN AM FOLLOWS...CLEAR LIQUID BREAKFAST, THEN WATER ONLY UNTIL 1400HRS, AT WHICH TIME SHE WILL NPO FOR PROCEDURE AT AROUND 1600HRS OR 1700HRS WHEN ROOM IS AVAILABLE. PT VERBALIZES UNDERSTANDING. SAFETY MEASURES IN PLACE. WILL CONTINUE TO MONITOR.
[2020-03-02 22:36] LABS: Hematocrit 23.4 % (33.0-51.0); Hemoglobin 7.5 g/dL (11.5-16.0)
[2020-03-03 04:20] LABS: BASOPHILS ABSOLUTE AUTO 0.04 K/mm3 (0.00-0.23); BASOPHILS PERCENT AUTO 0 % (0-2); EOSINOPHILS ABSOLUTE AUTO 0.34 K/mm3 (0.00-0.68); EOSINOPHILS PERCENT AUTO 4 % (0-6); Hematocrit 23.4 % (33.0-51.0); Hemoglobin 7.3 g/dL (11.5-16.0); IMMATURE GRAN ABSOLUTE AUTO 0.07 K/mm3 (0.00-0.10); IMMATURE GRAN PERCENT AUTO 1 % (0-1); LYMPHOCYTES ABSOLUTE AUTO 0.87 K/mm3 (0.84-5.20); LYMPHOCYTES PERCENT AUTO 9 % (21-46); MONOCYTES ABSOLUTE AUTO 0.67 K/mm3 (0.16-1.47); MONOCYTES PERCENT AUTO 7 % (4-13); Mean Corpuscular HGB 30.2 pg (26.0-34.0); Mean Corpuscular HGB Conc 31.2 g/dL (31.5-36.5); Mean Corpuscular Volume 97 fL (80-100); Mean Platelet Volume 9.5 fL (9.1-12.4); NEUTROPHILS ABSOLUTE AUTO 7.63 K/mm3 (1.96-9.15); NEUTROPHILS PERCENT AUTO 79 % (41-73); NRBC ABSOLUTE 0.02 K/mm3 (0.00-0.02); NRBC Auto 0.2 /100 WBC (0.0-0.2); Platelet Count 141 K/mm3 (150-400); RDW Coefficient Variation 16.7 % (11.7-14.2); RDW Standard Deviation 57.1 fL (35.1-46.3); Red Blood Cell Count 2.42 M/mm3 (3.80-5.20); White Blood Cell Count 9.62 K/mm3 (4.00-11.30)
[2020-03-03 04:35] LABS: Albumin, Blood 2.2 g/dL (3.4-5.0); Anion Gap 6 mmol/L (6-16); Blood Urea Nitrogen 81 mg/dL (8-24); Bun/Creatinine Ratio 16.6 (12.0-20.0); CO2, Blood 30 mmol/L (21-32); Calcium, Blood 8.3 mg/dL (8.5-10.1); Chloride, Blood 100 mmol/L (98-108); Creatinine, Blood 4.87 mg/dL (0.40-1.00); Glomerular Filtration Rate 9 (60-); Glucose, Blood 107 mg/dL (70-99); Magnesium, Blood 2.3 mg/dL (1.6-2.4); Phosphorus, Blood 3.5 mg/dL (2.5-4.9); Potassium, Blood 4.5 mmol/L (3.5-5.5); Sodium, Blood 136 mmol/L (136-145)
--- NOTE | 2020-03-03 06:39 | NUR ---
SHIFT SUMMARY LYING IN LOW FOWLERS WITH EYES CLOSED WHILE LISTENING TO BOOKS ON TAPE. AAO X3, TUCKER WEAKLY, FOLLOWS ALL COMMANDS. IMPROVED BP AND MAP NOTED AFTER REPOSITIONING BP CUFF TO RIGHT ANKLE. CLEAR LIQUID DIET UNTIL LUNCH, THE WATER ONLY TILL 2 PM, THEN NPO TILL EGD SCHEDULED BETWEEN 1600HRS AND 1700HRS TODAY. DENIES PAIN, DISCOMFORT, OR FURTHER NEEDS OR WANTS AT THIS TIME. SAFETY MEASURES IN PLACE. WILL CONTINUE TO MONITOR AND GIVE HAND OFF TO ONCOMING SHIFT USING SBAR.
--- NOTE | 2020-03-03 08:00 | NUR ---
pt sleeping in bed, wants to hold off on breakfast so she can continue to sleep, lungs are clear in upper silva, course to fine crackles in bases, resp even and unlabored, no cough noted, hrr, monitor in place running sr with first degree, see strip, no edema noted, ppp+1, cap refill <3sec, vs stable, afebrile, iv site is power glide to adamaris, site is clear and patent, btx4, abd flat soft nontender, voids very little, as she is a dialysis pt. [facility], skin has pressure sore to coccyx, with dressing in place, moves arms well, can wiggle feet, michelet, call light in reach.
--- NOTE | 2020-03-03 14:50 | NUR ---
dialysis is finished, pt has been repositioned, supported with pillows, states she is comfortable, is currently npo waiting for egd. daughter in room. call light in reach.
--- NOTE | 2020-03-03 16:40 | NUR ---
PT B/P IS IN THE 70'S, RECHECKED ON HER ARM, IN THE 80'S, CALL TO DR. PIMENTEL, SHE ASKED TO HAVE THE H&H ORDERED FOR 1800 DRAWN NOW, THIS WAS DONE, AND TO GIVE A 500ML BOLUS, THIS IS INFUSING. DAUGHTER IN ROOM, TURNED PT, WILL MONITOR, CALL LIGHT IN REACH.
--- NOTE | 2020-03-03 18:33 | NUR ---
STARTED TRANSFUSION PER ORDER, 1 UNIT, AFTER VERIFYING WITH A SECOND NURSE, AND V.S. OBTAINED, DAY SURG CALLED AND ARE GOING TO COME FOR HER PROCEDURE. DAUGHTER IN ROOM. DR. MARTÍNEZ IN ROOM TALKING TO PT. CALL LIGHT IN REACH.
--- NOTE | 2020-03-03 18:52 | NUR ---
B/P IN THE 90'S AT THIS TIME, DAY SURG NURSE CALLED AND SAID WOULD BY HERE SHORTLY TO DO EGD, NO FURTHER CHANGES THIS SHIFT. CALL LIGHT IN REACH.
--- NOTE | 2020-03-03 19:11 | NUR ---
GETTING PT READY IN ICU. History, Chart, Medications and Allergies reviewed before start of procedure. Lungs clear T/O to Auscultation. Patient confirms NPO status and agrees with scheduled surgery. Pre-Op teaching done. Pt verbalizes understanding.
--- NOTE | 2020-03-03 19:27 | NUR ---
03/03/201926 THOR LEACH History, Chart, Medications and Allergies reviewed before start of procedure. 3-LEAD EKG REVIEWED WITH PHYSICIAN PRIOR TO START OF PROCEDURE. O2 VIA N/C INTACT THROUGHOUT SEDATION/PROCEDURE. MONITOR INTACT WITH CONTINUOUS PULSE OXIMETRY AND INTERMITTENT BP. MAC WITH DR. MARTÍNEZ
--- NOTE | 2020-03-03 20:20 | NUR ---
ASSUMED PT CARE REPORT FROM LUDA RN AT 1907. ASSUMED PT CARE. PT ALERT AND ORIENTED. EGD COMPLETE BY DAY SURGERY STAFF AND DR PICKARD. PT DAUGHTER LILA AT BEDSIDE. PT RECEIVING BLOOD AT THIS TIME TO POWER GLIDE TO RIGHT UPPER ARM, SITE WNL, DRESSING C/D/I. PT HAS SALINE LOCK 20G TO RIGHT AC, SITE WNL, DRESSING C/D/I. PT HAS SITE TO RIGHT CHEST WITH PROTONIX INFUSING AT 10ML/HR. SITES WNL, DRESSING C/D/I. LUNG SOUND TO UPPER PATTEN CLEAR. LUNG SOUNDS TO BASES DIMINISHED WITH SCANT COARSENESS. SATS >92% ON 3L O2 PER NC. PT DENIES CURRENT SOB. BP LOW WITH MAPS 50-65. PROVIDERS ARE AWARE OF TRENDS. HR 60S, SR WITH 1ST BLOCK. PULSES PRESENT AND EQUAL. PT HAS FISTULA TO LEFT FA. SKIN C/D/I WITH BRUISING/ECCHYMOSIS TO EXT. ABD SOFT AND TENDER. BOWEL SOUNDS ACTIVE. PT OLIGURIC, CLEAN ATTENDS IN PLACE. CALL LIGHT IN REACH. SEE FULL SHIFT ASSESSMENT.
--- NOTE | 2020-03-04 00:30 | NUR ---
PROVIDER UPDATE DISCUSSED BP TREND WITH DR CURRIE, ORDERS FOR FLUIDS RECEIVED.
[2020-03-04 04:04] LABS: Hemoglobin 7.1 g/dL (11.5-16.0)
--- NOTE | 2020-03-04 04:05 | NUR ---
PROVIDER UPDATE DR CURRIE AND DR DYER AWARE OF PT BP TREND. ORDERS RECEIVED FOR MIDODRINE 10MG PO X1 AND TO CHANGE MIDODRINE FROM 7.5MG TID TO 10MG QID.
[2020-03-04 04:20] LABS: Anion Gap 7 mmol/L (6-16); Blood Urea Nitrogen 53 mg/dL (8-24); Bun/Creatinine Ratio 14.1 (12.0-20.0); CO2, Blood 30 mmol/L (21-32); Calcium, Blood 7.5 mg/dL (8.5-10.1); Chloride, Blood 104 mmol/L (98-108); Creatinine, Blood 3.75 mg/dL (0.40-1.00); Glomerular Filtration Rate 12 (60-); Glucose, Blood 97 mg/dL (70-99); Magnesium, Blood 2.1 mg/dL (1.6-2.4); Phosphorus, Blood 3.4 mg/dL (2.5-4.9); Potassium, Blood 3.9 mmol/L (3.5-5.5); Sodium, Blood 141 mmol/L (136-145)
--- NOTE | 2020-03-04 06:00 | NUR ---
PROVIDER UPDATE DISCUSSED LAB RESULTS AND CONTINUED HYPOTENSION WITH DR CURRIE. NO NEW ORDERS RECEIVED.
--- NOTE | 2020-03-04 06:16 | NUR ---
SHIFT SUMMARY PT REMAINS ALERT AND ORIENTED WHEN AWAKE. PARTICIPATES IN CARE SOMEWHAT. PT SKIN PALE, DRY AND FRAGILE. MEPILEX TO COCCYX C/D/I. PT HAS 20G TO RIGHT CHEST, SL, DRESSING C/D/I. PT HAS 20G TO RIGHT AC, SL, DRESSING C/D/I. PT HAS POWERGLIDE TO RIGHT UPPER ARM WITH NS INFUSING AT 75ML/HR, DRESSING C/D/I. PT HAD ONE SCANT VOID DURING SHIFT AND ONE MEDIUM FORMED TARRY STOOL. ATTENDS CLEAND AND DRY. PT ABLE TO MOVE UPPER EXT WEAKLY AND BARELY MOVE LOWER EXT. PT SATS >92%ON 3L O2 PER NC. HR 60S SR WITH 1ST DEGREE BLOCK. PT BP CONTINUE TO BE LOW (SBP >85 WITH MAP <60), MULT CALLS TO PROVIDER RE BP TREND AND LABS. MIDODRINE CHANGED FROM 7.5MG TID TO 10MG QID. A ONE TIME DOSE WAS GIVEN LAST PM. PT RECEIVED A 250ML FLUID BOLUS AND HAS NS INFUSING FOR A TOTAL OF 750ML. LUNG SOUNDS CLEAR TO UPPER PATTEN. ABD SOFT AND MILDLY TENDER, BS ACTIVE. CALL LIGHT REMAINS IN REACH AND SIDE RAILS SECURE FOR PT SAFETY. WILL REPORT TO DAY SHIFT.
--- NOTE | 2020-03-04 06:56 | NUR ---
PROVIDER VISIT DR DYER TO BEDSIDE, NO NEW ORDERS RECEIVED.
--- NOTE | 2020-03-04 08:57 | NUR ---
PT SLEEPING THIS AM, AROUSES TO VOICE, A&O X3. PT ONLY COMPLAINTS OF CHRONIC NECK/SHOULDER PAIN 07/19. DENIES NAUSEA OR ABD PAIN. BT'S HYPOACTIVE; VERY POOR APPETITE. GRADE 5 SYSTOLIC MURMUR. PT VERY HYPOTENSIVE; PT DENIES COMPLAINTS BUT IS VERY LETHARGIC. PT STATES SHE "NORMALLY RUNS VERY LOW". INCREASED DOSE OF MIDODRINE GIVEN. NS INFUSING AT 75CC/HR FOR A TOTAL OF 500CC. NO HD TODAY ORDERED. H&H TO BE DRAWN AT 1200,
--- NOTE | 2020-03-04 09:17 | NUR ---
DR PIMENTEL IN TO SEE PT; FULL UPDATE GIVEN. H&H TO BE REPEATED AT 1200 TO EVALUATE POSSIBLE BLEEDING AND POTENTIAL NEED FOR TRANSFUSION.
[2020-03-04 12:17] LABS: Hematocrit 23.1 % (33.0-51.0); Hemoglobin 7.4 g/dL (11.5-16.0)
--- NOTE | 2020-03-04 18:08 | NUR ---
PT SLEPT MAJORITY OF SHIFT. BP IMPROVED SIGNIFICANTLY TODAY WITH MIDODRINE. APPETITE IMPROVED AT DINNER. H&H STABLE, ELIQUIS RESTARTED TODAY BY DR PIMENTEL. IF PT REMAINS STABLE, WILL ATTEMPT TO MOBILIZE PT OOB TO CHAIR TOMORROW. PT CONTINUES TO DENIES COMPLAINTS. DAUGHTER HAS BEEN AT BEDSIDE FOR MAJORITY OF SHIFT.
--- NOTE | 2020-03-04 19:38 | NUR ---
ASSUMING CARE PATIENT IS IN BED. ALERT AND ANSWERING QUESTIONS APPROPRIATELY. BEDSIDE PLANT FLOOR AUTOMATION MANAGER SHOWS NSR WITH A RATE IN THE 60S. BP STABLE AT THIS TIME. DAUGHTER AT THE BEDSIDE. CALL LIGHT WITHIN REACH. NO NEEDS AT THIS TIME.
[2020-03-05 03:36] LABS: BASOPHILS ABSOLUTE AUTO 0.03 K/mm3 (0.00-0.23); BASOPHILS PERCENT AUTO 0 % (0-2); EOSINOPHILS ABSOLUTE AUTO 0.25 K/mm3 (0.00-0.68); EOSINOPHILS PERCENT AUTO 3 % (0-6); Hematocrit 23.6 % (33.0-51.0); Hemoglobin 7.5 g/dL (11.5-16.0); IMMATURE GRAN ABSOLUTE AUTO 0.04 K/mm3 (0.00-0.10); IMMATURE GRAN PERCENT AUTO 0 % (0-1); LYMPHOCYTES PERCENT AUTO 8 % (21-46); MONOCYTES ABSOLUTE AUTO 0.79 K/mm3 (0.16-1.47); MONOCYTES PERCENT AUTO 9 % (4-13); Mean Corpuscular HGB 30.5 pg (26.0-34.0); Mean Corpuscular HGB Conc 31.8 g/dL (31.5-36.5); Mean Corpuscular Volume 96 fL (80-100); NEUTROPHILS ABSOLUTE AUTO 7.19 K/mm3 (1.96-9.15); NEUTROPHILS PERCENT AUTO 80 % (41-73); Platelet Count 187 K/mm3 (150-400); RDW Standard Deviation 58.6 fL (35.1-46.3); Red Blood Cell Count 2.46 M/mm3 (3.80-5.20)
[2020-03-05 03:59] LABS: Anion Gap 5 mmol/L (6-16); Blood Urea Nitrogen 69 mg/dL (8-24); Bun/Creatinine Ratio 14.5 (12.0-20.0); CO2, Blood 30 mmol/L (21-32); Calcium, Blood 8.6 mg/dL (8.5-10.1); Chloride, Blood 102 mmol/L (98-108); Creatinine, Blood 4.76 mg/dL (0.40-1.00); Glomerular Filtration Rate 9 (60-); Glucose, Blood 140 mg/dL (70-99); Magnesium, Blood 2.1 mg/dL (1.6-2.4); Phosphorus, Blood 4.1 mg/dL (2.5-4.9); Potassium, Blood 4.9 mmol/L (3.5-5.5); Sodium, Blood 137 mmol/L (136-145)
--- NOTE | 2020-03-05 06:05 | NUR ---
END OF SHIFT SUMMARY KORINA'S ASSESSMENT REMAINED UNCHANGED FROM INITIAL ASSESSMENT THIS SHIFT. SHE IS INTACT NEUROLOGICALLY. DENIED PAIN. SHE WAS ABLE TO GET UP TO THE BSC WITH TWO PEOPLE AND A WALKER. SHE TOLERATED IT WELL. DENIED ANY DIZZINESS WITH POSITION CHANGES. BP WAS MARGINAL AT TIEMS THIS SHIFT BUT MAPS MAINTAINED GREATER THAN 65 FOR THE MAJORITY OF THE SHIFT. AUDIBLE HEART MURMUR WITH AUSCULTATION. BEDSIDE COMMUNITY ENGAGEMENT COORDINATOR SHOWS NSR. AFEBRILE. LUNGS CLEAR AND DIM. OXYGEN SATURATION STABLE ON 3 L NC. ONE SMALL BLACK TARRY STOOL THIS SHIFT. ONE SMALL VOID. SKIN IS INTACT WITH EXCEPTION OF ULCER TO COCCYX FROM PROCESS OWNER. PIV X 1 AND MIDLINE X 1 IN PLACCE.
--- NOTE | 2020-03-05 07:30 | NUR ---
PT SITTING UP IN BED LISTENING TO AUDIO BOOK. DENIES SOB OR DISCOMFORT. NO FLUIDS INFUSING. OFFERED PT BREAKFAST, PT REFUSED AT THIS TIME.
--- NOTE | 2020-03-05 12:33 | NUR ---
PT UP TP CHAIR WITH WALKER ASSIST FOR LUNCH. PT REQUIRES MAXIMUM ASSISTANCE TO CHAIR. ABLE TO FEE HERSELF. NO SWALLOWING DIFFICULTY.
--- NOTE | 2020-03-05 14:21 | NUR ---
PT OUT OF BED, UP TO CHAIR, TOLERATED WELL, TO MEDICAL FLOOR.
--- NOTE | 2020-03-05 14:31 | NUR ---
PT ARRIVED TO THE MEDICAL FLOOR FROM THE ICU, PT IS DUSKY IN COLOR, PT IS IN RECLINER, THE PT WAS ORIENTED TO THE ROOM CALL SYSTEM, PT APPEARS TO BE BREATHING EASILY ON O2 AT THIS TIME, PT IS SLEEPY, CALL LIGHT IN REACH
--- NOTE | 2020-03-05 16:34 | NUR ---
PT IS A/OX3, PLEASANT AND COOPERATIVE, DUSKY IN COLOR, PT WAS A TRANSFERE FROM THE ICU TODAY, THE PT APPEARS TO BE BREATHING EASILY, THE PT REPORTS FEELING WEAK TODAY, PT IS A 2 PERSON MAX ASSIST TO STAND AND PIVOT, THE PT IS RECIEVING DIALYSIS AT THIS TIME, 1 UNIT PRBC'S GIVEN WITH DIALYSIS, PTS DAUGHTER IS AT THE BEDSIDE, CALL LIGHT IN REACH, WILL CONTINUE TO MONITOR AND ASSESS FRO CHANGES
[2020-03-06 04:00] LABS: Hematocrit 25.1 % (33.0-51.0)
[2020-03-06 04:19] LABS: Albumin, Blood 1.9 g/dL (3.4-5.0); Anion Gap 6 mmol/L (6-16); Blood Urea Nitrogen 49 mg/dL (8-24); Bun/Creatinine Ratio 11.9 (12.0-20.0); CO2, Blood 32 mmol/L (21-32); Chloride, Blood 104 mmol/L (98-108); Creatinine, Blood 4.11 mg/dL (0.40-1.00); Glomerular Filtration Rate 11 (60-); Glucose, Blood 138 mg/dL (70-99); Phosphorus, Blood 3.1 mg/dL (2.5-4.9); Potassium, Blood 3.8 mmol/L (3.5-5.5); Sodium, Blood 142 mmol/L (136-145)
--- NOTE | 2020-03-06 06:23 | NUR ---
SHIFT SUMMARY PT IS AN 80 Y/O FEMALE, ADMITTED FOR POSSIBLE UPPER GI BLEED. SHE IS A&O X 3, LEGALLY BLIND AND SAXMAN. SHE IS A 2PA, BUT DECLINED TO GET OUT OF BED DURING THE NIGHT. SHE IS A DIALYSIS PT, FISTULA IN L ARM WITH BRUITS AND THRILL PRESENT. SHE IS ON 2L OF O2 VIA NC. VITAL SIGNS STABLE. NO COMPLAINTS OF PAIN, NAUSEA OR SOB. NO ACUTE CHANGES IN PT CONDITION NOTED DURING THE NIGHT. WILL CONTINUE TO MONITOR AND TREAT PER EMAR UNTIL HAND OFF TO DAY SHIFT RN.
--- NOTE | 2020-03-06 14:41 | NUR ---
JUST SWABBED PATIENT WITH RAPID COVID PER REQUIREMENT FOR SNF TRANSFER. SENT/ WALKED OVER TO LAB.
--- NOTE | 2020-03-06 16:30 | NUR ---
Pt sitting in wheel chair upon arrival. Pt is A&O and denies pain at this time. Pt's daughter Eleanor is present during visit. Engaged in therapeutic listening as Pt reports being agreeable with D/C plan to SNF. Pt reports using furniture and bedolla to assist with ambulation when she is at home. Pt reports adequate care support from her family. Pt reports not having an official PCP and Dr Hodges has been her primary care provider. Discussed POLST on file that she completed in 2014 with wishes to be DNR. Pt reports current wishes are not in alighnment with POLST on file. Educated on life sustaining treatments including risk factors and implications. Pt's current code status is full code which she confirms is her current wishes. Educated on each section to complete on POLST. Pt and daughter report they will discuss further and complete at a later time. Daughter Eleanor reports Pt has an advanced directive completed at home. Recommended to review AD and consider completing a new one if Pt's wishes have changed. Provided new AD and educated on each section to complete. Pt and daughter report no other concerns at this time. Spoke with Bedside RN Angelika. Angelika reports no concerns at this time. Palliative Care will remain available.
--- NOTE | 2020-03-06 16:50 | NUR ---
Initial spiritual care note: Met with Mrs. Silva and her dtr, Eleanor, at bedside. Mrs. Silva is very sweet and reports a life-long juwan that sustains her. She was appreciative of spiritual support and prayer. Both pt and family report hope that pt will return to baseline. Mrs. Silva says she is not afraid of dying, but is hoping for more quality time. Four adult children. Eleanor lives with and cares for pt. It is clear Mrs. Silva is well loved and cared-for. No concerns/fears reported. Pt is content with full code status. I will remain available.
--- NOTE | 2020-03-06 18:02 | NUR ---
PATIENT PLEASANT AND COOPERATIVE WITH STAFF. VITALS ARE STABLE. ChemBG's MONITORED HOWEVER HAVE NOT REQUIRED INSULIN COVERAGE. PATIENT CALLS APPROPRIATELY FOR STAFF ASSIST. THERE HAVE BEEN NO ACUTE CHANGES TO REPORT OF AT THIS TIME.
[2020-03-07 04:59] LABS: Hematocrit 24.1 % (33.0-51.0); Hemoglobin 7.5 g/dL (11.5-16.0)
--- NOTE | 2020-03-07 05:14 | NUR ---
03/07/20 0515 AWAKENED FOR VITALS AND REPOSITIONING. DENIES ANY PAIN AT THIS TIME. O2 REMAINS AT 2LPM VIA N/C. NO STOOLS THIS SHIFT. LEGALLY BLIND AND OTOE-[place]. PT LISTENED TO AUDIO STORY TELLING ALL NIGHT. DECLINED FOOD AND JUST WANTED WATER/ICE CHIPS THIS SHIFT.
[2020-03-07 05:23] LABS: Anion Gap 5 mmol/L (6-16); Blood Urea Nitrogen 33 mg/dL (8-24); Bun/Creatinine Ratio 9.2 (12.0-20.0); CO2, Blood 35 mmol/L (21-32); Calcium, Blood 9.2 mg/dL (8.5-10.1); Chloride, Blood 100 mmol/L (98-108); Creatinine, Blood 3.57 mg/dL (0.40-1.00); Glomerular Filtration Rate 13 (60-); Glucose, Blood 120 mg/dL (70-99); Phosphorus, Blood 2.1 mg/dL (2.5-4.9); Potassium, Blood 3.8 mmol/L (3.5-5.5); Sodium, Blood 140 mmol/L (136-145)
--- NOTE | 2020-03-07 15:19 | NUR ---
SHIFT SUMMARY PT RESTING QUIETLY AT START OF SHIFT. ASSISTED TO RECLINER AT FOR BREAKFAST. PT THEN TAKEN DOWN TO DIALYSIS, RETURNING AT LUNCH. HX OF ESRD. PT ADMITTED FOR GIB; ON ELIQUIS FOR A-FIB. NO FURTHER EPISODES OF BLOODY STOOLS REPORTED. PT ASSISTED TO BSC THIS AM, 2P ASSIST D/T WEAKNESS. CBG'S WNL'S; NO COVERAGE NEEDED TO PRESENT. PT ABLE TO WALK IN RM WITH P/T THIS AM, USING FWW. DAUGHTER HERE THIS AM AND AFTERNOON. PT TO D/C TO [facility] D/T WEAKNESS AND HAVING 16 STEPS TO GO UP TO GET INTO HOME. REPORT CALLED TO FAYE WALLACE AT [facility] @ 4952. ABHIJIT BECKWITH HERE TO TX PT TO [facility] AT 1515 WELL.
== END 2020-03-07 15:08 | DRG 377 ==
LOC: ER 10:48 → ICUW 15:11 → MEDS 15:11 → ICUW 16:44 → MEDS 03-05 14:07
PROVIDERS: Emergency Medicine; Internal Medicine; Internal Medicine Gastroenterology; Internal Medicine Nephrology; Nurse Practitioner Acute Care; ADMIT Family Medicine
PROC: 30233N1 Transfusion of Nonautologous Red Blood Cells into Peripheral Vein, Percutaneous Approach (ICD-10-PCS; principal; 2020-03-01)
PROC: 0D568ZZ Destruction of Stomach, Via Natural or Artificial Opening Endoscopic (ICD-10-PCS; 2020-03-03 11:15)
DX: K31.811 Angiodysplasia of stomach and duodenum with bleeding (principal); N18.6 End stage renal disease; Z94.0 Kidney transplant status; I50.32 Chronic diastolic (congestive) heart failure; D62 Acute posthemorrhagic anemia; J96.11 Chronic respiratory failure with hypoxia; N25.81 Secondary hyperparathyroidism of renal origin; I48.20 Chronic atrial fibrillation, unspecified; Z99.2 Dependence on renal dialysis; H54.8 Legal blindness, as defined in USA; K21.9 Gastro-esophageal reflux disease without esophagitis; I35.0 Nonrheumatic aortic (valve) stenosis; D53.8 Other specified nutritional anemias; E11.22 Type 2 diabetes mellitus with diabetic chronic kidney disease; E03.9 Hypothyroidism, unspecified; E78.5 Hyperlipidemia, unspecified; I48.0 Paroxysmal atrial fibrillation; Z79.4 Long term (current) use of insulin; M81.0 Age-related osteoporosis without current pathological fracture; I95.9 Hypotension, unspecified; E87.6 Hypokalemia; K44.9 Diaphragmatic hernia without obstruction or gangrene; E86.9 Volume depletion, unspecified; E88.09 Other disorders of plasma-protein metabolism, not elsewhere classified
CPT/HCPCS: 36415; 36430; 80047; 80053; 80069; 82272; 82947; 83735; 85014; 85018; 85025; 85027; 85610; 85730; 86850; 86900; 86901; 86923; 93005; 93010; 96365; 96376; 97110; 97161; 97166; 99285-25; A9270-GY; C1751; C9113; J0171; J0881; J1430; J2370; J2704; J7030; J7060; J7120; J7507; J7512; P9016; U0003

== ENCOUNTER 2020-03-22 12:01 | Day surgery (SDC) | payer OTHER ==
[~2020-03-22 12:01] MED LIST changes: +Meribin5 MG PO
--- NOTE | 2020-03-22 18:17 | NUR ---
SHIFT SUMMARY PT IS AOX2. PT DENIES PAIN, N/V. PT IS ON 2 L O2 PER NC. PT IS CURRENTLY RECEIVING HER 2ND UNIT OF PRBC. PT IS A DIRECT ADMIT FOR BLOOD TRANSFUSION. VSS. FAMILY PRESENT IN THE ROOM. PT IS IN BED, LOW POSITION, WITH CALL LIGHT IN REACH.
--- NOTE | 2020-03-22 20:41 | NUR ---
PT was direct admit for blood transfusion 2 units of packed red blood cells. Finishing 2nd unit. PT alert VSS tolerating transfusion well. Her DTR is at bedside & supportive. PT gets dialysis & had dialysis today via rt AV fistula. [facility]. Had dinner taking fluids well without complaints.
--- NOTE | 2020-03-22 23:48 | NUR ---
PT DC home after transfusions complete. Toileting & skin care. Replaced sacral mepilex after cleansing & applying kalmaseptic to open areas. Sent new oxygen bottle with PT & kept empty bottle. Stable & pleasant.
== END 2020-03-22 21:59 ==
LOC: TRN 12:01 → MEDS 21:59 → EDSTATUS 03-27 13:23
PROC: 30233N1 Transfusion of Nonautologous Red Blood Cells into Peripheral Vein, Percutaneous Approach (ICD-10-PCS; principal; 2020-03-22)
DX: D64.9 Anemia, unspecified (principal); E11.9 Type 2 diabetes mellitus without complications; Z79.4 Long term (current) use of insulin; Z79.52 Long term (current) use of systemic steroids; Z79.01 Long term (current) use of anticoagulants; Z79.899 Other long term (current) drug therapy; Z91.09 Other allergy status, other than to drugs and biological substances; Z51.5 Encounter for palliative care
CPT/HCPCS: 36415; 36430; 86850; 86900; 86901; 86923; J7040; P9016

== ENCOUNTER 2020-06-12 15:06 | Emergency (ER) | payer OTHER ==
[~2020-06-12] VITALS: Ht 160 cm; Wt 78.0 kg
[~2020-06-12 15:06] MED LIST changes: +DOCU100 PO; +FEBU40TA PO; +LORA.5 PO; +MEGE40T; +TIZA4 PO
[2020-06-12 15:42] LABS: BASOPHILS ABSOLUTE AUTO 0.01 K/mm3 (0.00-0.23); BASOPHILS PERCENT AUTO 0 % (0-2); EOSINOPHILS ABSOLUTE AUTO 0.01 K/mm3 (0.00-0.68); EOSINOPHILS PERCENT AUTO 0 % (0-6); Hematocrit 29.7 % (33.0-51.0); Hemoglobin 9.1 g/dL (11.5-16.0); IMMATURE GRAN ABSOLUTE AUTO 0.04 K/mm3 (0.00-0.10); IMMATURE GRAN PERCENT AUTO 1 % (0-1); LYMPHOCYTES ABSOLUTE AUTO 0.56 K/mm3 (0.84-5.20); LYMPHOCYTES PERCENT AUTO 9 % (21-46); MONOCYTES ABSOLUTE AUTO 0.61 K/mm3 (0.16-1.47); MONOCYTES PERCENT AUTO 9 % (4-13); Mean Corpuscular HGB 27.8 pg (26.0-34.0); Mean Corpuscular HGB Conc 30.6 g/dL (31.5-36.5); Mean Corpuscular Volume 91 fL (80-100); Mean Platelet Volume 10.6 fL (9.1-12.4); NEUTROPHILS ABSOLUTE AUTO 5.34 K/mm3 (1.96-9.15); NEUTROPHILS PERCENT AUTO 81 % (41-73); Platelet Count 152 K/mm3 (150-400); RDW Coefficient Variation 16.4 % (11.7-14.2); RDW Standard Deviation 54.9 fL (35.1-46.3); Red Blood Cell Count 3.27 M/mm3 (3.80-5.20); White Blood Cell Count 6.57 K/mm3 (4.00-11.30)
[2020-06-12 15:50] LABS: Calcium, Ionized (POC) 1.06 mmol/L (1.10-1.46); Chloride (POC) 89 mmol/L (98-108); Creatinine (POC) 9.4 mg/dL (0.6-1.0); Glucose (ISTAT POC) 129 mg/dL (70-99); Hemoglobin (POC) 9.5 g/dL (12.0-16.0); Potassium (POC) 4.4 mmol/L (3.5-5.5); Sodium (POC) 128 mmol/L (135-148); Total CO2 (POC) 27 mmol/L (21-32)
[2020-06-12 16:13] LABS: Albumin, Blood 2.7 g/dL (3.4-5.0); Albumin/Globulin Ratio 0.8 (0.8-1.8); Bilirubin, Total 0.5 mg/dL (0.1-1.0); Bun/Creatinine Ratio 10.7 (12.0-20.0); Calcium, Blood 8.4 mg/dL (8.5-10.1); Creatinine, Blood 8.45 mg/dL (0.40-1.00); Globulin, Blood 3.3 g/dL (2.2-4.0); Potassium, Blood 4.3 mmol/L (3.5-5.5)
[2020-06-15] MEDS ORDERED: Vitamin D2000 UNIT PO (14:21)
== END 2020-06-12 15:58 | disposition home or self-care (01) ==
LOC: ER 15:06
PROVIDERS: Emergency Medicine
DX: I95.9 Hypotension, unspecified (principal); Z79.52 Long term (current) use of systemic steroids; Z79.4 Long term (current) use of insulin; Z79.899 Other long term (current) drug therapy
CPT/HCPCS: 80047; 80053; 85014; 85025; 93005; 93010; 99285-25

== ENCOUNTER 2020-06-12 23:26 | Inpatient (IN) | payer OTHER ==
[~2020-06-12] VITALS: Ht 157.5 cm; Wt 81.8 kg
[~2020-06-12 23:26] MED LIST changes: -ACET500 PO; -Amiodarone HCl200 MG PO; -FEBUXOSTAT80 MG PO; -LEVSOD112 PO; -Meribin5 MG PO; -OMEP20ER PO
[2020-06-13 00:08] LABS: BASOPHILS ABSOLUTE AUTO 0.01 K/mm3 (0.00-0.23); BASOPHILS PERCENT AUTO 0 % (0-2); EOSINOPHILS ABSOLUTE AUTO 0.01 K/mm3 (0.00-0.68); EOSINOPHILS PERCENT AUTO 0 % (0-6); Hematocrit 30.4 % (33.0-51.0); Hemoglobin 9.5 g/dL (11.5-16.0); IMMATURE GRAN ABSOLUTE AUTO 0.03 K/mm3 (0.00-0.10); IMMATURE GRAN PERCENT AUTO 1 % (0-1); LYMPHOCYTES ABSOLUTE AUTO 0.34 K/mm3 (0.84-5.20); LYMPHOCYTES PERCENT AUTO 6 % (21-46); MONOCYTES ABSOLUTE AUTO 0.26 K/mm3 (0.16-1.47); MONOCYTES PERCENT AUTO 5 % (4-13); Mean Corpuscular HGB 28.3 pg (26.0-34.0); Mean Corpuscular HGB Conc 31.3 g/dL (31.5-36.5); Mean Corpuscular Volume 91 fL (80-100); Mean Platelet Volume 10.4 fL (9.1-12.4); NEUTROPHILS ABSOLUTE AUTO 5.07 K/mm3 (1.96-9.15); NEUTROPHILS PERCENT AUTO 89 % (41-73); Platelet Count 146 K/mm3 (150-400); RDW Coefficient Variation 16.2 % (11.7-14.2); Red Blood Cell Count 3.36 M/mm3 (3.80-5.20); White Blood Cell Count 5.72 K/mm3 (4.00-11.30)
[2020-06-13 00:28] LABS: Albumin, Blood 2.5 g/dL (3.4-5.0); Albumin/Globulin Ratio 0.7 (0.8-1.8); Bilirubin, Total 0.4 mg/dL (0.1-1.0); Bun/Creatinine Ratio 8.8 (12.0-20.0); Calcium, Blood 8.2 mg/dL (8.5-10.1); Creatinine, Blood 4.11 mg/dL (0.40-1.00); Globulin, Blood 3.4 g/dL (2.2-4.0); Potassium, Blood 3.2 mmol/L (3.5-5.5); Total Protein, Blood 5.9 g/dL (6.4-8.2); Troponin I 0.09 ng/mL (0.000-0.040)
--- NOTE | 2020-06-13 03:48 | NUR ---
REPORT RECIEVED FROM LO ROBERTS RN, AND AWAITING PT T/F TO ROOM 336.
--- NOTE | 2020-06-13 04:45 | NUR ---
ALERTED TO BP BACK DOWN TO 83/58 UPON ADMISSION TO ROOM 336 AT 0355. BP WAS LOW 77/52 AT INITIAL ARRIVAL. SHE CONT'S TO REQUIRE 4L 02 TO MAINTAIN SPO2 >91%. PT USES 2L O2 AT BASELINE AND BNP IS 913 W/COARSE LS T/O. HE WAS PREVIOUSLY AWARE OF PERSISTENT HYPOTENSION BUT HADN'T REALIZED FLAT LYING AND REVERSE TRENDELENBURG POSITIONS WERE UTILIZED IN ER TO MAINTAIN BP>90'S. HE INSTRUCTED FOR STAFF TO EVALUATE MAP W/ALL VITALS. HE STATED THAT MAP>60 IS WNL AND TO ALERT MD IF MAP IS <60. HE DOESN'T FEEL LIKE TRANSFER TO HIGHER LEVEL OF CARE IS NEEDED AT THIS TIME PT IS ASYMPTOMATIC OF CARDIAC AND RESPIRATORY DISTRESS AT REST. SHE CONT'S TO DENY DIZZINESS AT THIS TIME. IVF WERE COMMENCED AT 75 ML/HR PER EMAR UPON ARRIVAL TO FLOOR.
--- NOTE | 2020-06-13 04:53 | NUR ---
RAPID COVID TEST RX'D D/T STAFF BECOMING AWARE THAT PT HAS A FAMILY MEMBER IN ICU THAT IS POSITIVE FOR COVID W/POSSIBLE EXPOSURE TO OTHER FAMILY MEMBERS ALSO LIKELY POSITIVE. WILL PERFOMR TEST AND ISOLATE WHILE RESULTS ARE PENDING.
[2020-06-13 05:56] LABS: Influenza A, PCR Negative (NEGATIVE); Influenza B, PCR Negative (NEGATIVE); Resp Syncytial Virus, PCR Negative (NEGATIVE); SARS-Cov-2 (COVID-19) PCR, MMC Positive (NEGATIVE)
--- NOTE | 2020-06-13 06:35 | NUR ---
LAB ALERTED STAFF THAT PT IS COVID (+) AT 0605. MULTICULTURAL INTERNSHIP, MER GAYLE AND RN COMMERCIAL COORDINATOR, TJ LLOYD, MADE AWARE. PT WAS T/F'D TO COVID UNIT ROOM 312 W/MASK ON AT 0630.
--- NOTE | 2020-06-13 06:45 | NUR ---
SUMMARY: PT A/OX3, PLEASANT AND COOPERATIVE W/CARE. SHE WAS MADE BEDREST FOR WEAKNESS, PERSISTENT HYPOTENSION AND SYNCOPAL EPISODE PRIOR TO ADMIT. PT'S SBP WAS 70'S UPON ARRIVAL TO FLOOR, TRENDING UPWARD TO 80'S W/COMMENCMENT OF NS AT 75 ML/HR. THIS RN DISCUSSED CONCERNS W/ RE: LOW BP'S REQUIRING FLAT LYING POSITION, ELEVATED BNP AND INCREASED O2 NEEDS FROM BASELINE. HE INSTRUCTED TO MONITOR MAP W/VITALS AND NOTIFY MD IF MAP<60. MAP WAS 61-67 AT THE TIME AND SHE'D ALREADY RECIEVED MIDODRINE IN ER IN ADDITION TO TID SCHEDULED DOSES AT HOME. PT HAD DIALSIS DURING DAY 06/12/19 AND HADN'T FELT WELL SINCE. SHE IS OLIGURIC R/T CKD STAGE 4. STAFF ALSO BECAME AWARE DURING ADMISSION THAT PT HAD LIKELY EXPOSURES TO KNOWN POSITIVE FAMILY MEMBERS. RX OBTAINED FOR RAPID COVID TEST AND RESULT WAS POSITIVE WELL. SENIOR TELECOMMUNICATIONS CONSULTANT, RN REAL ESTATE PROFESSIONAL AND MADE AWARE. STAFF WERE POSSIBLY EXPOSED PRIOR TO ISOLATION. PT WAS T/F'D TO COVID UNIT ROOM 312. SHE WAS REQUIRING 4L O2 TO MAINTAIN SPO2>91% UPON T/F, LS COARSE T/O BUT NO S/S RESP DISTRESS. SHE WAS NSR-S.TACH W/HR 90'S-100'S. BP IMPROVED TO 109/73 W/MAP 87 UPON T/F TO COVID UNIT. PT HAS PRESSURE ULCER TO COCCYX W/HOME HEALTH MANAGING TX. CONSENT OBTAINED AND PHOTOS TAKEN W/MEPILEX DX APPLIED. FLU VAC REFUSED, HAD ONLE ALREADY THIS SEASON. ORAL KCL RECIEVED FOR K-3.2. NO ACUTE CHANGES. REPORT PROVIDED TO DAY RN.
[2020-06-13 08:20] LABS: BASOPHILS ABSOLUTE AUTO 0.02 K/mm3 (0.00-0.23); BASOPHILS PERCENT AUTO 0 % (0-2); EOSINOPHILS ABSOLUTE AUTO 0.01 K/mm3 (0.00-0.68); EOSINOPHILS PERCENT AUTO 0 % (0-6); Hematocrit 34.4 % (33.0-51.0); Hemoglobin 10.4 g/dL (11.5-16.0); IMMATURE GRAN ABSOLUTE AUTO 0.05 K/mm3 (0.00-0.10); IMMATURE GRAN PERCENT AUTO 1 % (0-1); LYMPHOCYTES ABSOLUTE AUTO 0.47 K/mm3 (0.84-5.20); LYMPHOCYTES PERCENT AUTO 6 % (21-46); MONOCYTES ABSOLUTE AUTO 0.44 K/mm3 (0.16-1.47); MONOCYTES PERCENT AUTO 6 % (4-13); Mean Corpuscular HGB 27.6 pg (26.0-34.0); Mean Corpuscular HGB Conc 30.2 g/dL (31.5-36.5); Mean Corpuscular Volume 91 fL (80-100); Mean Platelet Volume 9.6 fL (9.1-12.4); NEUTROPHILS ABSOLUTE AUTO 6.67 K/mm3 (1.96-9.15); NEUTROPHILS PERCENT AUTO 87 % (41-73); Platelet Count 133 K/mm3 (150-400); RDW Coefficient Variation 16.1 % (11.7-14.2); RDW Standard Deviation 54.7 fL (35.1-46.3); Red Blood Cell Count 3.77 M/mm3 (3.80-5.20); White Blood Cell Count 7.66 K/mm3 (4.00-11.30)
[2020-06-13 08:36] LABS: Magnesium, Blood 2.1 mg/dL (1.6-2.4)
[2020-06-13 08:37] LABS: Albumin, Blood 2.6 g/dL (3.4-5.0); Anion Gap 7 mmol/L (6-16); Blood Urea Nitrogen 39 mg/dL (8-24); Bun/Creatinine Ratio 8.8 (12.0-20.0); CO2, Blood 33 mmol/L (21-32); Calcium, Blood 8.1 mg/dL (8.5-10.1); Chloride, Blood 97 mmol/L (98-108); Creatinine, Blood 4.44 mg/dL (0.40-1.00); Glomerular Filtration Rate 10 (60-); Glucose, Blood 137 mg/dL (70-99); Phosphorus, Blood 3.9 mg/dL (2.5-4.9); Sodium, Blood 137 mmol/L (136-145)
[2020-06-13 08:40] LABS: Albumin, Blood 2.5 g/dL (3.4-5.0); Albumin/Globulin Ratio 0.7 (0.8-1.8); Bilirubin, Total 0.4 mg/dL (0.1-1.0); Bun/Creatinine Ratio 9.1 (12.0-20.0); Calcium, Blood 8.1 mg/dL (8.5-10.1); Creatinine, Blood 4.4 mg/dL (0.40-1.00); Globulin, Blood 3.5 g/dL (2.2-4.0); Troponin I 0.102 ng/mL (0.000-0.040)
[2020-06-13 16:34] LABS: Troponin I 0.11 ng/mL (0.000-0.040)
--- NOTE | 2020-06-13 17:15 | NUR ---
I offered prayer and spiritual support to Mrs. Silva. She accepted prayer, but then appeared to have little use of me. She appears ill and admits she is worried about her son who is in ICU with Covid as well. I will remain available.
--- NOTE | 2020-06-14 05:38 | NUR ---
BOWSTRING MAKER SUMMARY NO ACUTE CHANGES NOTED. PT AAOX3 AND PLEASANT. ON 4L O2 AT START OF SHIFT BUT TITRATED DOWN TO 3L AT THIS TIME O2 SATS HIGH 90'S. BP HAS BEEN STABLE WITH SBP IN LOW 100'S THROUGH THE NIGHT. PT DENIES PAIN, N/V. VSS, WILL CONTINUE TO MONITOR.
[2020-06-14 06:13] LABS: Hematocrit 31.3 % (33.0-51.0); Hemoglobin 9.4 g/dL (11.5-16.0)
[2020-06-14 06:26] LABS: Albumin, Blood 2.3 g/dL (3.4-5.0); Anion Gap 6 mmol/L (6-16); Blood Urea Nitrogen 32 mg/dL (8-24); Bun/Creatinine Ratio 8.2 (12.0-20.0); CO2, Blood 33 mmol/L (21-32); Calcium, Blood 7.9 mg/dL (8.5-10.1); Chloride, Blood 100 mmol/L (98-108); Creatinine, Blood 3.91 mg/dL (0.40-1.00); Glomerular Filtration Rate 12 (60-); Glucose, Blood 172 mg/dL (70-99); Magnesium, Blood 2.2 mg/dL (1.6-2.4); Phosphorus, Blood 4.9 mg/dL (2.5-4.9); Potassium, Blood 5.1 mmol/L (3.5-5.5); Sodium, Blood 139 mmol/L (136-145)
--- NOTE | 2020-06-14 18:08 | NUR ---
SUMMARY PT SITTING UP IN THE RECLINER AT THE BEDSIDE, PT HAS BEEN PLEASANT AND COOPERATIVE WITH CARE, UP WITH THERAPY, HAD A SHOWER, TITRATED O2 BACK TO 2L, NO COMPLAINTS, VSS, WILL CONT TO MONITOR
--- NOTE | 2020-06-15 04:42 | NUR ---
SHIFT SUMMARY PT HAD MOSTLY UNEVENTFUL NIGHT. REMAINED ON HOME DOSE OF 2 L O2 VIA NC WITH O2 SATS IN THE MID TO HIGH 90'S. PT DENIES SOB. EXCORIATION/ABRASION TO R INNER BUTTOCKS. MEPILEX APPLIED. PT IS A DIALYSIS PT AND HAS LOW URINE OUTPUT. PT REPORTS THAT HER OUTPUT IS AT BASELINE. PT VERY WEAK THIS EVENING. HEAVY 2 PERSON ASSIST W/ GAIT BELT AND FWW TO TRANSFER FROM RECLINER TO BED. TELEMETRY MONITORING READING AFLUTTER 90'S. PT LEGALLY BLIND BUT ABLE TO CALL APPROPRIATELY WITH CALL LIGHT AND EAT AND DRINK INDEPENDENTLY WITH SET UP. FISTULA TO LFA WITH GOOD THRILL AND BRUIT. VITAL SIGNS STABLE. WILL CONTINUE TO MONITOR AND REPORT TO DAY RN.
[2020-06-15 06:06] LABS: Hematocrit 29.8 % (33.0-51.0); Hemoglobin 9.2 g/dL (11.5-16.0)
[2020-06-15 06:30] LABS: Albumin, Blood 2.2 g/dL (3.4-5.0); Anion Gap 9 mmol/L (6-16); Blood Urea Nitrogen 58 mg/dL (8-24); Bun/Creatinine Ratio 11.4 (12.0-20.0); CO2, Blood 30 mmol/L (21-32); Chloride, Blood 96 mmol/L (98-108); Glomerular Filtration Rate 9 (60-); Glucose, Blood 254 mg/dL (70-99); Magnesium, Blood 2.2 mg/dL (1.6-2.4); Phosphorus, Blood 6.4 mg/dL (2.5-4.9); Potassium, Blood 5.2 mmol/L (3.5-5.5); Sodium, Blood 135 mmol/L (136-145)
[2020-06-15] MEDS ORDERED: DEXA6 PO (14:21)
--- NOTE | 2020-06-15 17:20 | NUR ---
DISCHARGE NOTE PT POWERGLIDE IN PITA REMOVED BY THIS RN. DC INSTRUCTIONS REVIEWED WITH PT'S DAUGHTER OVER THE PHONE AND DC PACKET GIVEN TO [facility]. WATER RESOURCES PROJECT MANAGER ASSISTED PT INTO HOME CLOTHING. PT DIALYSIS BAG AND BELONGINGS PRESENT WITH PT UPON DC. PT ASSISTED INTO WHEELCHAIR WITH O2 TANK. PT LEFT FACILITY WITH [facility] AT APPROXIMATELY 1720.
== END 2020-06-15 17:03 | disposition home health service (06) | DRG 177 ==
LOC: ER 23:26 → MEDS 06-13 02:01
PROVIDERS: Emergency Medicine; Internal Medicine Nephrology; ADMIT Internal Medicine
PROC: 5A1D70Z Performance of Urinary Filtration, Intermittent, Less than 6 Hours Per Day (ICD-10-PCS; principal; 2020-06-13)
PROC: 8E0ZXY6 Isolation (ICD-10-PCS; 2020-06-13)
PROC: XW033E5 Introduction of Remdesivir Anti-infective into Peripheral Vein, Percutaneous Approach, New Technology Group 5 (ICD-10-PCS; 2020-06-13)
PROC: 5A1D70Z Performance of Urinary Filtration, Intermittent, Less than 6 Hours Per Day (ICD-10-PCS; 2020-06-15)
DX: U07.1 COVID-19 (principal); J12.82 Pneumonia due to coronavirus disease 2019; N18.6 End stage renal disease; J96.11 Chronic respiratory failure with hypoxia; Z94.0 Kidney transplant status; I12.0 Hypertensive chronic kidney disease with stage 5 chronic kidney disease or end stage renal disease; E11.22 Type 2 diabetes mellitus with diabetic chronic kidney disease; I95.9 Hypotension, unspecified; D63.1 Anemia in chronic kidney disease; I35.0 Nonrheumatic aortic (valve) stenosis; I48.0 Paroxysmal atrial fibrillation; E03.9 Hypothyroidism, unspecified; E78.5 Hyperlipidemia, unspecified; E87.6 Hypokalemia; E88.09 Other disorders of plasma-protein metabolism, not elsewhere classified; E86.9 Volume depletion, unspecified
CPT/HCPCS: 0241U; 36415; 71045; 80053; 80069; 82550; 82947; 83735; 83880; 84484; 85014; 85018; 85025; 93005; 93010; 93308; 93321; 96374; 97116; 97162; 97166; 97535; 99285-25; A9270; G0378; J0881; J7030; J7507; J7512

== ENCOUNTER 2020-06-17 17:00 | Observation (INO) | payer OTHER ==
[~2020-06-17] VITALS: Ht 157.5 cm; Wt 84.5 kg
[~2020-06-17 17:00] MED LIST changes: +DEXA6 PO
[2020-06-17 22:19] LABS: Albumin, Blood 2.3 g/dL (3.4-5.0); Anion Gap 12 mmol/L (6-16); Blood Urea Nitrogen 78 mg/dL (8-24); Bun/Creatinine Ratio 13.3 (12.0-20.0); CO2, Blood 25 mmol/L (21-32); Calcium, Blood 7.8 mg/dL (8.5-10.1); Chloride, Blood 93 mmol/L (98-108); Creatinine, Blood 5.88 mg/dL (0.40-1.00); Glomerular Filtration Rate 7 (60-); Glucose, Blood 366 mg/dL (70-99); Magnesium, Blood 2.4 mg/dL (1.6-2.4); Phosphorus, Blood 6.1 mg/dL (2.5-4.9); Potassium, Blood 5.5 mmol/L (3.5-5.5); Sodium, Blood 130 mmol/L (136-145)
--- NOTE | 2020-06-18 04:15 | NUR ---
SHIFT SUMMARY ADMITTED FOR DIALYSIS. FULL CODE. PLAN IS FOR DIALYSIS TODAY, THEN DC HOME. SHE DID HAVE ONE BRIEF NOSE BLEED, SHE WAS ON XARELTO. SHE WAS TITRATED UP TO 4 LPM O2 DUE TO DESATURATION. OLD FISTULA-NONWORKING IN PITA. NEW WORKING FISTULA IN MOISES. LEGALLY BLIND. ONE SACRAL ULCER COVERED IN MEPILEX.
[2020-06-18 05:43] LABS: Hematocrit 29.2 % (33.0-51.0); Hemoglobin 8.8 g/dL (11.5-16.0)
[2020-06-18 06:02] LABS: Albumin, Blood 2.2 g/dL (3.4-5.0); Anion Gap 10 mmol/L (6-16); Blood Urea Nitrogen 85 mg/dL (8-24); Bun/Creatinine Ratio 13.8 (12.0-20.0); CO2, Blood 27 mmol/L (21-32); Calcium, Blood 7.5 mg/dL (8.5-10.1); Chloride, Blood 92 mmol/L (98-108); Creatinine, Blood 6.15 mg/dL (0.40-1.00); Glomerular Filtration Rate 7 (60-); Glucose, Blood 355 mg/dL (70-99); Magnesium, Blood 2.4 mg/dL (1.6-2.4); Phosphorus, Blood 6.4 mg/dL (2.5-4.9); Potassium, Blood 5.5 mmol/L (3.5-5.5); Sodium, Blood 129 mmol/L (136-145)
--- NOTE | 2020-06-18 15:00 | NUR ---
PATIENT DISCHARGED AT 1500. TRANSPORTED HOME BY [facility]. THE PATIENT'S DAUGHTER NOTIFIED OF DISCHARGE. IV DC'D.
== END 2020-06-18 15:00 | disposition home health service (06) ==
LOC: ER 17:00 → MEDS 17:01
PROVIDERS: Internal Medicine Nephrology; ADMIT Hospitalist
DX: E87.70 Fluid overload, unspecified (principal); E87.5 Hyperkalemia; E87.1 Hypo-osmolality and hyponatremia; E88.09 Other disorders of plasma-protein metabolism, not elsewhere classified; E83.39 Other disorders of phosphorus metabolism; I13.2 Hypertensive heart and chronic kidney disease with heart failure and with stage 5 chronic kidney disease, or end stage renal disease; E11.22 Type 2 diabetes mellitus with diabetic chronic kidney disease; N18.6 End stage renal disease; I50.32 Chronic diastolic (congestive) heart failure; D63.1 Anemia in chronic kidney disease; U07.1 COVID-19; I35.0 Nonrheumatic aortic (valve) stenosis; J96.11 Chronic respiratory failure with hypoxia; I48.0 Paroxysmal atrial fibrillation; Z99.2 Dependence on renal dialysis; Z91.048 Other nonmedicinal substance allergy status; Z79.4 Long term (current) use of insulin; Z79.01 Long term (current) use of anticoagulants; Z79.899 Other long term (current) drug therapy; Z94.0 Kidney transplant status
CPT/HCPCS: 36415; 80069; 82947; 83735; 85014; 85018; 96372; 97112; 97162; 99284; A9270; G0257; G0378; J0881; J7507

== ENCOUNTER 2020-06-20 12:21 | Observation (INO) | payer OTHER ==
[~2020-06-20] VITALS: Ht 157.5 cm; Wt 82.0 kg
[2020-06-20 13:06] LABS: BASOPHILS ABSOLUTE AUTO 0.01 K/mm3 (0.00-0.23); BASOPHILS PERCENT AUTO 0 % (0-2); EOSINOPHILS PERCENT AUTO 0 % (0-6); IMMATURE GRAN ABSOLUTE AUTO 0.16 K/mm3 (0.00-0.10); IMMATURE GRAN PERCENT AUTO 3 % (0-1); LYMPHOCYTES ABSOLUTE AUTO 0.24 K/mm3 (0.84-5.20); LYMPHOCYTES PERCENT AUTO 4 % (21-46); MONOCYTES ABSOLUTE AUTO 0.34 K/mm3 (0.16-1.47); MONOCYTES PERCENT AUTO 6 % (4-13); Mean Corpuscular HGB 27.6 pg (26.0-34.0); Mean Corpuscular Volume 89 fL (80-100); Mean Platelet Volume 10.5 fL (9.1-12.4); NEUTROPHILS ABSOLUTE AUTO 4.71 K/mm3 (1.96-9.15); NEUTROPHILS PERCENT AUTO 86 % (41-73); NRBC ABSOLUTE 0.02 K/mm3 (0.00-0.02); NRBC Auto 0.4 /100 WBC (0.0-0.2); Platelet Count 238 K/mm3 (150-400); RDW Coefficient Variation 16.5 % (11.7-14.2); RDW Standard Deviation 53.9 fL (35.1-46.3); Red Blood Cell Count 3.26 M/mm3 (3.80-5.20); White Blood Cell Count 5.46 K/mm3 (4.00-11.30)
[2020-06-20 13:30] LABS: Albumin, Blood 2.4 g/dL (3.4-5.0); Albumin/Globulin Ratio 0.7 (0.8-1.8); Bilirubin, Total 0.5 mg/dL (0.1-1.0); Bun/Creatinine Ratio 13.4 (12.0-20.0); Creatinine, Blood 6.48 mg/dL (0.40-1.00); Globulin, Blood 3.5 g/dL (2.2-4.0); Potassium, Blood 5.4 mmol/L (3.5-5.5); Total Protein, Blood 5.9 g/dL (6.4-8.2)
[2020-06-20 15:35] LABS: Calcium, Ionized (POC) 0.91 mmol/L (1.10-1.46); Chloride (POC) 89 mmol/L (98-108); Creatinine (POC) 6.5 mg/dL (0.6-1.0); Glucose (ISTAT POC) 245 mg/dL (70-99); Hemoglobin (POC) 9.9 g/dL (12.0-16.0); Potassium (POC) 5.4 mmol/L (3.5-5.5); Sodium (POC) 125 mmol/L (135-148); Total CO2 (POC) 25 mmol/L (21-32)
--- NOTE | 2020-06-20 19:41 | NUR ---
ADMIT PT ARRIVED TO @192. SLID TRANSFER TO BED. DAUGHTER LILA @BEDSIDE. DIALYSIS NURSE MEGHA IN @193. ORIENTED PT TO @ CALL LIGHT.
--- NOTE | 2020-06-21 04:28 | NUR ---
SHIFT SUMMARY NEW ADMIT TO FLOOR LAST NIGHT. AOX4. SLOW TO RESPOND. QAWALANGIN & LEGALLY BLIND. VSS. TELE AFIB @100. PT RECIEVED DIALYSIS LAST NIGHT, FISTULA L ARM. HS CBG @160. SPO2 >90% ON 2L O2 (BASELINE). E/U RESPIRATIONS. DENIES DYSPNEA. LUNGS HAVE FINE CRACKLES IN BASES. COVID + 06/13/20. STAGE 2 PRESSURE SORE ON COCCYX, PICTURE TAKEN & PLACED IN CHART, CLEANED WOUND & NEW MEPILEX APPLIED. REPORTS 08/16 PAIN @PRESSURE SORE SITE, MEDICATED 1X c TYLENOL & PT STATED RELIEF. DAUGHTER STATED PT HAS HAD VERY LITTLE APPETITE & HAS ONLY BEEN ABLE TO DRINK OR EAT SMALL BITES OF APPLESAUCE OVER THE PAST FEW DAYS. DAUGHTER ALSO REPORTED NO BM IN 3 DAYS & THAT SHE IS UNABLE TO TRANSFER PT OOB THE LAST FEW DAYS BECAUSE SHE IS SO WEAK, THEREFORE PT HAS BEEN BEDREST @HOME. CALL LIGHT IN REACH & PT ABLE TO MAKE NEEDS KNOWN. WILL MONITOR UNTIL DAY NURSE ASSUMES CARE.
[2020-06-21 05:16] LABS: BASOPHILS ABSOLUTE AUTO 0.01 K/mm3 (0.00-0.23); BASOPHILS PERCENT AUTO 0 % (0-2); EOSINOPHILS ABSOLUTE AUTO 0.05 K/mm3 (0.00-0.68); EOSINOPHILS PERCENT AUTO 1 % (0-6); Hematocrit 28.6 % (33.0-51.0); Hemoglobin 8.8 g/dL (11.5-16.0); IMMATURE GRAN ABSOLUTE AUTO 0.15 K/mm3 (0.00-0.10); IMMATURE GRAN PERCENT AUTO 3 % (0-1); LYMPHOCYTES ABSOLUTE AUTO 0.26 K/mm3 (0.84-5.20); LYMPHOCYTES PERCENT AUTO 4 % (21-46); MONOCYTES ABSOLUTE AUTO 0.52 K/mm3 (0.16-1.47); MONOCYTES PERCENT AUTO 9 % (4-13); Mean Corpuscular HGB 27.4 pg (26.0-34.0); Mean Corpuscular HGB Conc 30.8 g/dL (31.5-36.5); Mean Corpuscular Volume 89 fL (80-100); Mean Platelet Volume 10.3 fL (9.1-12.4); NEUTROPHILS ABSOLUTE AUTO 4.93 K/mm3 (1.96-9.15); NEUTROPHILS PERCENT AUTO 83 % (41-73); NRBC ABSOLUTE 0.04 K/mm3 (0.00-0.02); NRBC Auto 0.7 /100 WBC (0.0-0.2); Platelet Count 214 K/mm3 (150-400); RDW Coefficient Variation 16.5 % (11.7-14.2); RDW Standard Deviation 52.8 fL (35.1-46.3); Red Blood Cell Count 3.21 M/mm3 (3.80-5.20); White Blood Cell Count 5.92 K/mm3 (4.00-11.30)
[2020-06-21 05:32] LABS: Albumin, Blood 2.2 g/dL (3.4-5.0); Anion Gap 9 mmol/L (6-16); Blood Urea Nitrogen 52 mg/dL (8-24); Bun/Creatinine Ratio 10.9 (12.0-20.0); CO2, Blood 31 mmol/L (21-32); Calcium, Blood 7.9 mg/dL (8.5-10.1); Chloride, Blood 96 mmol/L (98-108); Creatinine, Blood 4.79 mg/dL (0.40-1.00); Glomerular Filtration Rate 9 (60-); Glucose, Blood 209 mg/dL (70-99); Magnesium, Blood 2.2 mg/dL (1.6-2.4); Phosphorus, Blood 5.7 mg/dL (2.5-4.9); Potassium, Blood 4.5 mmol/L (3.5-5.5); Sodium, Blood 136 mmol/L (136-145)
--- NOTE | 2020-06-21 10:41 | NUR ---
HELD THE AMIODARONE THIS MORNING; PT IS HAVING DIALYSIS AND BP IS LOW DR AWARE. WILL GIVE THE AMIODARONE LATER IN THE DAY IF THE BP STABLE PER .
--- NOTE | 2020-06-21 17:55 | NUR ---
SHIFT SUMMARY PT AOX4. PT IS A 2P ASSISTS. PT HAS MEPELEX ON THE SACRAL AREA-SEE PIC IN CHART PRESSURE ULCER. PT IS ON 2L O2 AT BASELINE, SATS ABOVE 90S. DENIES ANY PAIN DURING THIS SHIFT. DENIES CP OR SOB. PT IS ON TELE AFLUTTER/AFIB AT 100S; AMIODARONE GIVEN TODAY. PT HAD DIALYSIS THIS AM AND XRAY. PT ALSO WORKED WITH PT/OT. BED IS IN THE LOWEST POSITION AND CALL LIGHT WITHIN REACH.
--- NOTE | 2020-06-22 02:40 | NUR ---
REPORT GIVEN TO RODRIGO MORILLO
--- NOTE | 2020-06-22 04:28 | NUR ---
PSYCHOLOGY TECHNICIAN SUMMARY PT A&OX4, ABLE TO MAKE NEEDS KNOWN. PLEASANT AND COOPERATIVE TO CARE. NO C/O PAIN OR ANY DISCOMFORT. DENIES CP,SOB, OR N&V. PT CONT ON 2LPM O2 VIA NC, EVEN AND UNLABORED BREATHING PATTERN NOTED, SATS >90%. MEPILEX DRESSING TO COCCYX AREA CDI, PT DENIES PAIN ON AA. PT CALM AND RESTED IN BED T/O SHIFT. BED AT LOWEST POSITION. CALL LIGHT WITHIN REACH.
[2020-06-22 04:50] LABS: BASOPHILS ABSOLUTE AUTO 0.01 K/mm3 (0.00-0.23); BASOPHILS PERCENT AUTO 0 % (0-2); EOSINOPHILS ABSOLUTE AUTO 0.01 K/mm3 (0.00-0.68); EOSINOPHILS PERCENT AUTO 0 % (0-6); Hematocrit 32.6 % (33.0-51.0); Hemoglobin 9.7 g/dL (11.5-16.0); IMMATURE GRAN ABSOLUTE AUTO 0.13 K/mm3 (0.00-0.10); IMMATURE GRAN PERCENT AUTO 3 % (0-1); LYMPHOCYTES ABSOLUTE AUTO 0.24 K/mm3 (0.84-5.20); LYMPHOCYTES PERCENT AUTO 5 % (21-46); MONOCYTES ABSOLUTE AUTO 0.51 K/mm3 (0.16-1.47); MONOCYTES PERCENT AUTO 10 % (4-13); Mean Corpuscular HGB 27.4 pg (26.0-34.0); Mean Corpuscular HGB Conc 29.8 g/dL (31.5-36.5); Mean Corpuscular Volume 92 fL (80-100); Mean Platelet Volume 10.5 fL (9.1-12.4); NEUTROPHILS ABSOLUTE AUTO 4.03 K/mm3 (1.96-9.15); NEUTROPHILS PERCENT AUTO 82 % (41-73); Platelet Count 223 K/mm3 (150-400); Red Blood Cell Count 3.54 M/mm3 (3.80-5.20); White Blood Cell Count 4.93 K/mm3 (4.00-11.30)
[2020-06-22 05:08] LABS: BASOPHILS PERCENT MAN 0 % (0-2); EOSINOPHILS PERCENT MAN 0 % (0-6); LYMPHOCYTES ABSOLUTE MAN 0.14 K/mm3 (0.84-5.20); LYMPHOCYTES PERCENT MAN 3 % (21-46); MONOCYTES PERCENT MAN 0 % (4-13); NEUTROPHILS ABSOLUTE MAN 4.78 K/mm3 (1.96-9.15); SEG NEUTROPHILS PERCENT MAN 97 % (41-73); TOTAL CELLS COUNTED 29
[2020-06-22 05:09] LABS: Albumin, Blood 2.3 g/dL (3.4-5.0); Anion Gap 10 mmol/L (6-16); Blood Urea Nitrogen 43 mg/dL (8-24); Bun/Creatinine Ratio 10.6 (12.0-20.0); CO2, Blood 29 mmol/L (21-32); Calcium, Blood 7.9 mg/dL (8.5-10.1); Chloride, Blood 98 mmol/L (98-108); Creatinine, Blood 4.05 mg/dL (0.40-1.00); Glomerular Filtration Rate 11 (60-); Glucose, Blood 216 mg/dL (70-99); Magnesium, Blood 2.3 mg/dL (1.6-2.4); Phosphorus, Blood 5.1 mg/dL (2.5-4.9); Potassium, Blood 4.4 mmol/L (3.5-5.5); Sodium, Blood 137 mmol/L (136-145)
--- NOTE | 2020-06-22 16:25 | NUR ---
SHIFT SUMMARY PT AOX4; CALLS APPROPRIATELY. Q2 TURN. PT HAS ULCER ON BUTTOCKS AREA- MEPELEX CHANGED AND REDRESSED TODAY. VSS. PT WORKED WITH PT/OT TODAY. NO OTHER ACUTE CHANGES ON THIS SHIFT. BED ALARM IS ON AND CALL LIGHT WITHIN REACH.
--- NOTE | 2020-06-23 04:17 | NUR ---
WHIP SAWYER SUMMARY PT A&OX4, ABLE TO MAKE NEEDS KNOWN. PLEASANT AND COOPERATIVE TO CARE. NO C/O PAIN OR ANY DISCOMFORT. PT REPOSITIONED IN BED Q2. DENIES CP, SOB OR N&V. PT CONT ON O2 2LPM VIA NC, SPO2 >90%. PT HAD DIALYSIS THIS SHIFT. NO ACUTE CHANGES NOTED TO PATIENT, DENIES ANY DISCOMFORT AFTER DIALYSIS. MEPILEX DRESSING TO COCCYX AREA REMAINS CDI. PT CALM AND RESTING IN BED AT THIS TIME. BED AT LOWEST POSITION. CALL LIGHT WITHIN REACH.
[2020-06-23 05:09] LABS: Hemoglobin 9.2 g/dL (11.5-16.0)
[2020-06-23 05:40] LABS: Albumin, Blood 2.4 g/dL (3.4-5.0); Anion Gap 7 mmol/L (6-16); Blood Urea Nitrogen 34 mg/dL (8-24); Bun/Creatinine Ratio 10.2 (12.0-20.0); CO2, Blood 33 mmol/L (21-32); Calcium, Blood 7.8 mg/dL (8.5-10.1); Chloride, Blood 96 mmol/L (98-108); Creatinine, Blood 3.32 mg/dL (0.40-1.00); Glomerular Filtration Rate 14 (60-); Glucose, Blood 203 mg/dL (70-99); Magnesium, Blood 2.1 mg/dL (1.6-2.4); Phosphorus, Blood 3.9 mg/dL (2.5-4.9); Potassium, Blood 4.1 mmol/L (3.5-5.5); Sodium, Blood 136 mmol/L (136-145)
--- NOTE | 2020-06-23 17:05 | NUR ---
PT TRANSFERRED TO [facility] AT 1700. DIALYSIS DONE PRIOR DISCHARGED TODAY. PT HAS L ARM FISTULA ACCESSED TODAY; LENORA WILL STAY FOR 2 HOURS. IV DCD. PT ALSO RECEIVED ALL MORNING MEDICATIONS. PT WAS NOT GIVEN MIDODRINE BECAUSE SHE WAS HAVING DIALYSIS AT A TIME AND TOOK MORE THAN COUPLE HOURS. FACESHEET AND ENVELOPE GIVEN WITH THE EMS. TRANSFERRED VIA WC TO AMBULANCE. NO OTHER C/O DURING DISCHARGE.
== END 2020-06-23 17:00 ==
LOC: ER 12:21 → MEDS 12:22
PROVIDERS: Emergency Medicine; Internal Medicine Nephrology; Physician Assistant; ADMIT Family Medicine
DX: U07.1 COVID-19 (principal); J12.82 Pneumonia due to coronavirus disease 2019; E87.5 Hyperkalemia; E87.1 Hypo-osmolality and hyponatremia; I95.9 Hypotension, unspecified; I13.2 Hypertensive heart and chronic kidney disease with heart failure and with stage 5 chronic kidney disease, or end stage renal disease; I50.33 Acute on chronic diastolic (congestive) heart failure; N18.6 End stage renal disease; E11.22 Type 2 diabetes mellitus with diabetic chronic kidney disease; N25.81 Secondary hyperparathyroidism of renal origin; Z94.0 Kidney transplant status; E87.70 Fluid overload, unspecified; D63.1 Anemia in chronic kidney disease; J44.9 Chronic obstructive pulmonary disease, unspecified; I48.0 Paroxysmal atrial fibrillation; H54.8 Legal blindness, as defined in USA; Z79.4 Long term (current) use of insulin; Z79.01 Long term (current) use of anticoagulants; Z79.899 Other long term (current) drug therapy; Z91.048 Other nonmedicinal substance allergy status
CPT/HCPCS: 36415; 71045; 80047; 80053; 80069; 82947; 83605; 83735; 83880; 84145; 85014; 85018; 85025; 87040; 93005; 93010; 97110; 97112; 97162; 97166; 97530; 97535; 99285-25; A9270; G0257; G0378; J1815; J7507

== ENCOUNTER 2020-07-24 11:21 | Day surgery (SDC) | payer OTHER ==
--- NOTE | 2020-07-24 14:18 | NUR ---
2 UNSUCCESSFUL IV ATTEMPTS BY GRETA PRIOR TO START BY JUANA
== END 2020-07-24 17:50 | disposition home or self-care (01) ==
LOC: ATC 11:21
DX: I12.0 Hypertensive chronic kidney disease with stage 5 chronic kidney disease or end stage renal disease (principal); N18.6 End stage renal disease; D63.1 Anemia in chronic kidney disease; E11.22 Type 2 diabetes mellitus with diabetic chronic kidney disease; Z99.2 Dependence on renal dialysis; Z86.16 Personal history of COVID-19; J44.9 Chronic obstructive pulmonary disease, unspecified; I48.0 Paroxysmal atrial fibrillation; Z79.4 Long term (current) use of insulin; Z79.899 Other long term (current) drug therapy; Z94.0 Kidney transplant status; Z79.01 Long term (current) use of anticoagulants
CPT/HCPCS: 36415; 36430; 86850; 86900; 86901; 86923; J7050; P9016

== ENCOUNTER 2020-07-28 10:34 | Inpatient (IN) | payer OTHER ==
[~2020-07-28] VITALS: Ht 160 cm; Wt 80.6 kg
[2020-07-28 11:08] LABS: BASOPHILS ABSOLUTE AUTO 0.05 K/mm3 (0.00-0.23); BASOPHILS PERCENT AUTO 1 % (0-2); EOSINOPHILS ABSOLUTE AUTO 0.12 K/mm3 (0.00-0.68); EOSINOPHILS PERCENT AUTO 1 % (0-6); Hematocrit 31.9 % (33.0-51.0); Hemoglobin 9.4 g/dL (11.5-16.0); IMMATURE GRAN ABSOLUTE AUTO 0.04 K/mm3 (0.00-0.10); IMMATURE GRAN PERCENT AUTO 1 % (0-1); LYMPHOCYTES ABSOLUTE AUTO 0.67 K/mm3 (0.84-5.20); LYMPHOCYTES PERCENT AUTO 8 % (21-46); MONOCYTES ABSOLUTE AUTO 0.63 K/mm3 (0.16-1.47); MONOCYTES PERCENT AUTO 7 % (4-13); Mean Corpuscular HGB 28.1 pg (26.0-34.0); Mean Corpuscular HGB Conc 29.5 g/dL (31.5-36.5); Mean Corpuscular Volume 95 fL (80-100); NEUTROPHILS ABSOLUTE AUTO 7.35 K/mm3 (1.96-9.15); NEUTROPHILS PERCENT AUTO 83 % (41-73); Platelet Count 225 K/mm3 (150-400); RDW Coefficient Variation 18.8 % (11.7-14.2); RDW Standard Deviation 65.1 fL (35.1-46.3); Red Blood Cell Count 3.35 M/mm3 (3.80-5.20); White Blood Cell Count 8.86 K/mm3 (4.00-11.30)
[2020-07-28 11:25] LABS: Albumin, Blood 2.3 g/dL (3.4-5.0); Albumin/Globulin Ratio 0.6 (0.8-1.8); Bilirubin, Total 0.5 mg/dL (0.1-1.0); Bun/Creatinine Ratio 9.4 (12.0-20.0); Calcium, Blood 9.3 mg/dL (8.5-10.1); Creatinine, Blood 1.91 mg/dL (0.40-1.00); Total Protein, Blood 6.3 g/dL (6.4-8.2)
[2020-07-28] MEDS ORDERED: LOVA40 PO (12:49)
[2020-07-28] MEDS ORDERED: LEVSOD112 PO (12:50)
[2020-07-28] MEDS ORDERED: NOVOLOG FL100 UNIT/3 SC (12:50)
[2020-07-28] MEDS ORDERED: OMEP20ER PO (12:51)
[2020-07-28] MEDS ORDERED: ACET500 PO (12:51)
[2020-07-28] MEDS ORDERED: FEBUXOSTAT80 MG PO (12:52)
[2020-07-28] MEDS ORDERED: TACR1 PO (12:52)
[2020-07-28] MEDS ORDERED: MIDO5 PO (12:53)
[2020-07-28] MEDS ORDERED: Amiodarone HCl200 MG PO (12:53)
[2020-07-28] MEDS ORDERED: ELIQUIS2.5 MG PO (12:53)
[2020-07-28] MEDS ORDERED: Meribin5 MG PO (12:54)
[2020-07-28] MEDS ORDERED: GABA300 PO (12:54)
[2020-07-28] MEDS ORDERED: BASAGLAR K100 UNIT/1 SC (12:56)
[2020-07-28] MEDS ORDERED: FURO40 PO (12:56)
[2020-07-28] MEDS ORDERED: THERA-D2000 UNIT PO (12:57)
[2020-07-28] MEDS ORDERED: PRED5 PO (12:58)
[2020-07-28] MEDS ORDERED: Calcium Acetat667 MG PO (12:59)
[2020-07-28] MEDS ORDERED: Rena-Vite Tabl0.8 MG PO (12:59)
[2020-07-28] MEDS ORDERED: TRAM50 PO (13:00)
[2020-07-28 14:28] LABS: Influenza A, PCR NEGATIVE (NEGATIVE); Influenza B, PCR NEGATIVE (NEGATIVE); Resp Syncytial Virus, PCR NEGATIVE (NEGATIVE)
[2020-07-28 14:34] LABS: SARS-Cov-2 (COVID-19) PCR, MMC POSITIVE (NEGATIVE)
--- NOTE | 2020-07-28 19:26 | NUR ---
SHIFT SUMMARY PT IS AOX2-3 AND TEARFUL. PT DENIES PAIN, N/V, SOB AT THIS TIME. PT IS BEDREST/LIFT PT. PT ARRIVED TO UNIT AT APPROXIMATELY 1640 FROM ER. PT'S DAUGHTER CAME UP WITH PT. PT TELE RUNNING AFIB IN THE 120S. PT ATE DINNER TODAY. PT IS IN BED, CALL LIGHT IN REACH, BED IN LOW POSITION.
[2020-07-29 05:06] LABS: Hematocrit 32.7 % (33.0-51.0); Hemoglobin 9.5 g/dL (11.5-16.0); Mean Corpuscular HGB 27.7 pg (26.0-34.0); Mean Corpuscular HGB Conc 29.1 g/dL (31.5-36.5); Mean Corpuscular Volume 95 fL (80-100); Mean Platelet Volume 10.1 fL (9.1-12.4); Platelet Count 233 K/mm3 (150-400); RDW Coefficient Variation 18.6 % (11.7-14.2); RDW Standard Deviation 64.9 fL (35.1-46.3); Red Blood Cell Count 3.43 M/mm3 (3.80-5.20); White Blood Cell Count 5.96 K/mm3 (4.00-11.30)
[2020-07-29 05:30] LABS: Bun/Creatinine Ratio 10.1 (12.0-20.0); Calcium, Blood 9.4 mg/dL (8.5-10.1); Creatinine, Blood 2.78 mg/dL (0.40-1.00); Magnesium, Blood 2.1 mg/dL (1.6-2.4); Potassium, Blood 3.6 mmol/L (3.5-5.5)
--- NOTE | 2020-07-29 05:32 | NUR ---
SUPERVISOR PLASMA SUMMARY PT A/O X4 WITH FORGETFULNESS. DENIES PAIN, NAUSEA, SOB. CONTINUES TO BE ON 1L VIA NC SATTING IN THE 'S. SLEPT WELL TONIGHT. NO ACUTE CHANGES. BED ALARM IN PLACE, CALL LIGHT WITHIN REACH.
[2020-07-29 14:29] LABS: Stool Occult Blood Guaiac 1 Pos (Neg)
--- NOTE | 2020-07-29 16:02 | NUR ---
POSITIVE GUAIAC: DISCUSSED LAB RESULT WITH DR. MOHAMUD AND MEDICATIONS THAT THE PATIENT IS CURRENTLY ON. NEW ORDERS RECEIVED AND PLACED.
[2020-07-29 16:58] LABS: Hematocrit 34.8 % (33.0-51.0); Hemoglobin 10.4 g/dL (11.5-16.0)
--- NOTE | 2020-07-29 18:44 | NUR ---
END OF SHIFT SUMMARY: PATIENT REPORTED MILD ABDOMINAL PAIN DURING THE SHIFT. PATIENT DENIED NEED FOR INTERVENTION. PATIENT REPORTS SHE ONLY TAKES MEDICATION WHEN IT IS "REALLY BAD". PATIENT WENT TO DIALYSIS TODAY. PATIENT TOLERATED WELL. PATIENT'S BLOOD PRESSURES HAVE BEEN STABLE WHILE ON THE FLOOR. PATIENT DENIED DIZZINESS, SOB, AND/OR CHEST PAIN OR DISCOMFORT. PATIENT DID NOT HAVE AN APPETITE FOR LUNCH. SHE REPORTED THAT THE MEAT WAS TOO DIFFICULT TO EAT. PROVIDED WITH MORE APPROPRIATE FOOD FOR DINNER. PATIENT'S DAUGHTER CAME TO VISIT THE PATIENT THIS EVENING. SHE REPORTED THAT EITHER SHE OR THE OTHER DAUGHTER WILL BE HOME TOMORROW FOR THE PATIENT'S DISCHARGE. DAUGHTER REPORTED THAT THEY WILL NEED HELP SCHEDULING A RIDE TO THE PATIENT'S HOME WITH [facility]. PATIENT HAD DARK STOOLS. DISCUSSED WITH DR. MOHAMUD. NEW ORDERS RECIEVED AND PLACED. NO OTHER SIGNS OF BLEEDING. PATIENT REPORTS THAT SHE HAS HAD STOOL POSITIVE FOR BLOOD IN THE PAST.
[2020-07-30 05:41] LABS: BASOPHILS PERCENT AUTO 0 % (0-2); EOSINOPHILS ABSOLUTE AUTO 0.03 K/mm3 (0.00-0.68); EOSINOPHILS PERCENT AUTO 1 % (0-6); Hemoglobin 9.3 g/dL (11.5-16.0); IMMATURE GRAN ABSOLUTE AUTO 0.03 K/mm3 (0.00-0.10); IMMATURE GRAN PERCENT AUTO 1 % (0-1); LYMPHOCYTES ABSOLUTE AUTO 0.48 K/mm3 (0.84-5.20); LYMPHOCYTES PERCENT AUTO 8 % (21-46); MONOCYTES ABSOLUTE AUTO 0.55 K/mm3 (0.16-1.47); MONOCYTES PERCENT AUTO 9 % (4-13); Mean Corpuscular HGB 27.6 pg (26.0-34.0); Mean Corpuscular HGB Conc 29.1 g/dL (31.5-36.5); Mean Corpuscular Volume 95 fL (80-100); Mean Platelet Volume 9.9 fL (9.1-12.4); NEUTROPHILS ABSOLUTE AUTO 5.29 K/mm3 (1.96-9.15); NEUTROPHILS PERCENT AUTO 83 % (41-73); Platelet Count 245 K/mm3 (150-400); RDW Coefficient Variation 18.6 % (11.7-14.2); RDW Standard Deviation 64.5 fL (35.1-46.3); Red Blood Cell Count 3.37 M/mm3 (3.80-5.20); White Blood Cell Count 6.38 K/mm3 (4.00-11.30)
--- NOTE | 2020-07-30 05:54 | NUR ---
KNOTTER SUMMARY PT A/O X4 WITH FORGETFULNESS. CAN BE EMOTIONAL AT TIMES. PT REPOSITIONED FREQUENTLY THROUGHOUT THE NIGHT- HOWEVER PT ONLY LIKES TO LAY ON ONE SIDE. VSS. NO ACUTE CHANGES. CALL LIGHT WITHIN REACH, BED ALARM ON. WILL CONTINUE TO MONITOR.
[2020-07-30 06:01] LABS: Albumin, Blood 2.4 g/dL (3.4-5.0); Anion Gap 7 mmol/L (6-16); Blood Urea Nitrogen 31 mg/dL (8-24); Bun/Creatinine Ratio 11.8 (12.0-20.0); CO2, Blood 32 mmol/L (21-32); Calcium, Blood 9.4 mg/dL (8.5-10.1); Chloride, Blood 98 mmol/L (98-108); Creatinine, Blood 2.63 mg/dL (0.40-1.00); Glomerular Filtration Rate 19 (60-); Glucose, Blood 245 mg/dL (70-99); Magnesium, Blood 2.1 mg/dL (1.6-2.4); Phosphorus, Blood 2.4 mg/dL (2.5-4.9); Potassium, Blood 3.6 mmol/L (3.5-5.5); Sodium, Blood 137 mmol/L (136-145)
--- NOTE | 2020-07-30 06:04 | NUR ---
BLADDER SCAN PT BLADDER SCANNED WITH 82ML IN BLADDER. ORDER IS TO CALL IF OVER 200ML.
[2020-07-30] MEDS ORDERED: AZIT250 PO (16:35)
[2020-07-30] MEDS ORDERED: VISBIOME 112.51 EACH PO (16:36)
[2020-07-30] MEDS ORDERED: ANTIFUNGAL POWD71 GM TOP (16:36)
--- NOTE | 2020-07-30 17:02 | NUR ---
DISCHARGE SUMMARY PT DISCHARGED @ APPROX 1650 VIA [id number] BY [facility]. PT STATED SHE HAD ALL OF HER BELONGINGS. HER IV WAS REMOVED AND THE SITE APPEARED WNL. DISCHARGE INSTRCUTIONS WERE REVIEWED WITH PT AND DAUGHTER WHO WAS AT BEDSIDE. RX NEEDED FAXED TO PREFERRED PHARMACY.
== END 2020-07-30 16:51 | disposition home health service (06) | DRG 871 ==
LOC: ER 10:34 → EOR 10:35 → MEDS 10:35 → ER 10:35 → MEDS 10:35
PROVIDERS: Emergency Medicine; Internal Medicine; Nurse Practitioner Acute Care; ADMIT Internal Medicine
PROC: 5A1D90Z Performance of Urinary Filtration, Continuous, Greater than 18 hours Per Day (ICD-10-PCS; principal; 2020-07-29)
PROC: 5A1D90Z Performance of Urinary Filtration, Continuous, Greater than 18 hours Per Day (ICD-10-PCS; 2020-07-30)
DX: A41.89 Other specified sepsis (principal); U07.1 COVID-19; J12.82 Pneumonia due to coronavirus disease 2019; N18.6 End stage renal disease; Z94.0 Kidney transplant status; I50.32 Chronic diastolic (congestive) heart failure; N25.81 Secondary hyperparathyroidism of renal origin; I13.2 Hypertensive heart and chronic kidney disease with heart failure and with stage 5 chronic kidney disease, or end stage renal disease; J98.11 Atelectasis; E87.1 Hypo-osmolality and hyponatremia; Z79.4 Long term (current) use of insulin; Z79.01 Long term (current) use of anticoagulants; Z99.2 Dependence on renal dialysis; Z99.81 Dependence on supplemental oxygen; E11.22 Type 2 diabetes mellitus with diabetic chronic kidney disease; I35.0 Nonrheumatic aortic (valve) stenosis; E66.01 Morbid (severe) obesity due to excess calories; Z68.31 Body mass index [BMI] 31.0-31.9, adult; E83.39 Other disorders of phosphorus metabolism
CPT/HCPCS: 0241U; 36415; 71045; 74176; 80048; 80053; 80069; 82270; 82947; 83605; 83690; 83735; 83880; 84145; 85014; 85018; 85025; 85027; 87040; 93005; 93010; 96365; 96366; 96367; 96372; 96375; 96376; 99285-25; A9270; G0378; J0456; J0696; J0881; J2920; J7030; J7050; J7060; J7507; J7512

== ENCOUNTER 2020-09-18 10:48 | Emergency (ER) | payer OTHER ==
[~2020-09-18] VITALS: Ht 160 cm; Wt 75.3 kg
[~2020-09-18 10:48] MED LIST changes: +ACET500 PO; +ANTIFUNGAL POWD71 GM TOP; +AZIT250 PO; +Amiodarone HCl200 MG PO; +FEBUXOSTAT80 MG PO; +LEVSOD112 PO; +Meribin5 MG PO; +OMEP20ER PO; +THERA-D2000 UNIT PO; +VISBIOME 112.51 EACH PO
[2020-09-18 11:12] LABS: BASOPHILS ABSOLUTE AUTO 0.01 K/mm3 (0.00-0.23); BASOPHILS PERCENT AUTO 0 % (0-2); EOSINOPHILS ABSOLUTE AUTO 0.11 K/mm3 (0.00-0.68); EOSINOPHILS PERCENT AUTO 2 % (0-6); Hematocrit 32.2 % (33.0-51.0); Hemoglobin 9.7 g/dL (11.5-16.0); IMMATURE GRAN ABSOLUTE AUTO 0.02 K/mm3 (0.00-0.10); IMMATURE GRAN PERCENT AUTO 0 % (0-1); LYMPHOCYTES ABSOLUTE AUTO 0.37 K/mm3 (0.84-5.20); LYMPHOCYTES PERCENT AUTO 7 % (21-46); MONOCYTES ABSOLUTE AUTO 0.33 K/mm3 (0.16-1.47); MONOCYTES PERCENT AUTO 6 % (4-13); Mean Corpuscular HGB 27.1 pg (26.0-34.0); Mean Corpuscular HGB Conc 30.1 g/dL (31.5-36.5); Mean Corpuscular Volume 90 fL (80-100); Mean Platelet Volume 9.9 fL (9.1-12.4); NEUTROPHILS ABSOLUTE AUTO 4.48 K/mm3 (1.96-9.15); NEUTROPHILS PERCENT AUTO 84 % (41-73); Platelet Count 205 K/mm3 (150-400); RDW Coefficient Variation 17.4 % (11.7-14.2); RDW Standard Deviation 57.5 fL (35.1-46.3); Red Blood Cell Count 3.58 M/mm3 (3.80-5.20); White Blood Cell Count 5.32 K/mm3 (4.00-11.30)
[2020-09-18 11:29] LABS: Albumin, Blood 2.5 g/dL (3.4-5.0); Albumin/Globulin Ratio 0.7 (0.8-1.8); Bilirubin, Total 0.4 mg/dL (0.1-1.0); Bun/Creatinine Ratio 11.9 (12.0-20.0); Calcium, Blood 8.9 mg/dL (8.5-10.1); Creatinine, Blood 2.1 mg/dL (0.40-1.00); Globulin, Blood 3.7 g/dL (2.2-4.0); Magnesium, Blood 1.9 mg/dL (1.6-2.4); Potassium, Blood 3.2 mmol/L (3.5-5.5); Total Protein, Blood 6.2 g/dL (6.4-8.2)
[2020-09-18] MEDS ORDERED: Roxicodone5 MG PO (12:43)
== END 2020-09-18 13:59 | disposition home or self-care (01) ==
LOC: ER 10:48
PROVIDERS: Emergency Medicine
DX: I95.3 Hypotension of hemodialysis (principal); N18.6 End stage renal disease; E11.22 Type 2 diabetes mellitus with diabetic chronic kidney disease; Z99.2 Dependence on renal dialysis
CPT/HCPCS: 36415; 80053; 83690; 83735; 85025; 93005; 93010; 96374; 99284-25; A9270; J2405

== ENCOUNTER 2020-09-29 13:06 | Inpatient (IN) | payer OTHER ==
[~2020-09-29] VITALS: Ht 160 cm; Wt 80.4 kg
[~2020-09-29 13:06] MED LIST changes: +Roxicodone5 MG PO
[2020-09-29 13:38] LABS: BASOPHILS ABSOLUTE AUTO 0.01 K/mm3 (0.00-0.23); BASOPHILS PERCENT AUTO 0 % (0-2); EOSINOPHILS ABSOLUTE AUTO 0.09 K/mm3 (0.00-0.68); EOSINOPHILS PERCENT AUTO 1 % (0-6); Hematocrit 31.3 % (33.0-51.0); Hemoglobin 9.2 g/dL (11.5-16.0); IMMATURE GRAN ABSOLUTE AUTO 0.05 K/mm3 (0.00-0.10); IMMATURE GRAN PERCENT AUTO 1 % (0-1); LYMPHOCYTES ABSOLUTE AUTO 0.33 K/mm3 (0.84-5.20); LYMPHOCYTES PERCENT AUTO 4 % (21-46); MONOCYTES ABSOLUTE AUTO 0.67 K/mm3 (0.16-1.47); MONOCYTES PERCENT AUTO 9 % (4-13); Mean Corpuscular HGB 26.7 pg (26.0-34.0); Mean Corpuscular HGB Conc 29.4 g/dL (31.5-36.5); Mean Corpuscular Volume 91 fL (80-100); Mean Platelet Volume 9.7 fL (9.1-12.4); NEUTROPHILS ABSOLUTE AUTO 6.65 K/mm3 (1.96-9.15); NEUTROPHILS PERCENT AUTO 85 % (41-73); NRBC ABSOLUTE 0.05 K/mm3 (0.00-0.02); NRBC Auto 0.6 /100 WBC (0.0-0.2); Platelet Count 216 K/mm3 (150-400); RDW Coefficient Variation 18.1 % (11.7-14.2); RDW Standard Deviation 60.1 fL (35.1-46.3); Red Blood Cell Count 3.44 M/mm3 (3.80-5.20)
[2020-09-29 14:00] LABS: Albumin, Blood 2.4 g/dL (3.4-5.0); Albumin/Globulin Ratio 0.6 (0.8-1.8); Bilirubin, Total 0.5 mg/dL (0.1-1.0); Bun/Creatinine Ratio 12.2 (12.0-20.0); Calcium, Blood 9.3 mg/dL (8.5-10.1); Creatinine, Blood 2.79 mg/dL (0.40-1.00); Globulin, Blood 3.8 g/dL (2.2-4.0); Potassium, Blood 3.2 mmol/L (3.5-5.5); Total Protein, Blood 6.2 g/dL (6.4-8.2); Troponin I 0.031 ng/mL (0.000-0.040)
[2020-09-29 14:42] LABS: pH Blood Venous 7.25 (7.34-7.37)
[2020-09-29 14:43] LABS: Base Excess Venous 2.8 mmol/L; Bicarbonate Venous 25.9 mmol/L (24.0-30.0); PCO2 Venous 68.1 mmHg (38-42); PO2 Venous 33.1 mmHg (38-42)
[2020-09-29] MEDS ORDERED: LINZESS72 MCG PO (14:52)
[2020-09-29] MEDS ORDERED: Calcium Acetat667 MG PO (15:38)
[2020-09-29] MEDS ORDERED: OMEP20ER PO (15:38)
--- NOTE | 2020-09-29 18:45 | NUR ---
RECEIVED PT FROM ER VIA RTOHATCHI. DX-SEPSIS/PNEUMONIA. HX- ESRD, HEMODIALYSIS M.W,F, DIASTOLIC HEART FAILURE, ANEMIA, DM II, AFIB ON ANTICOAGULATION, HYPOTENSION, RENAL TRANSPLANT, COPD-O2 DEPENDENT AT HOME, COVID+ JULY [address] DYER CONSULT. PT DID HAVE DIAYLYSIS TODAY. 1500 CC REMOVED. NGHIA REPORTS THAT THEY HAD TO NEIL HEMODIALYSIS EARLY PT HAD PERIODS OF RESTLESSNESS, AND THEN LETHARGY-BP WAS "SOFT" AT THAT TIME. PER ER-CHIEF COMPLAINT WAS DECREASED LOC & BACK PAIN ON ARRIVAL- PT RESPONDS TO VOICE-SEEMS [place]. TUCKER, BUT VERY WEAK. PT MOANING AND STATES "I HURT ALL OVER." APPEARS CONFUSED. SKIN IS VERY ASHENED/PENG. TEMP 95.2 ECG SHOWS AFIB WITH RATE 100'S. MAP TRENDING LESS THAN 50 WITH LEVOPHED INFUSING VIA RIGHT EJ. UNABLE TO FLUSH THIS IV. IV DC'D-DR. CURRIE NOTIFIED AND PLANS TO COME TO PLACE C.L. VASOPRESSIN AND LEVOPHED INFUSING VIA RIGHT FORARM IV. BOTH ARMS ARE BRUISED. SKIN IS THIN AND FRAIL. LEFT ARM AV FISTULA WITH GOOD THRILL. LUNGS TIGHT AND DIMINISHED THROUGH OUT. SATS 90'S ON 6 LITERS OXYMIZER. PT VOMITED A SMALL AMOUNT OF BROWN, LIQUID EMESIS. PT STATES "I NEED TO PEE. WILKINS WITH TEMP PROBE PLACED. JUNE AREA VERY RED AND EXCORIATED-UA/UTOX SENT. URINE VERY CLOUDY, YELLOW. COCCYX WITH WOUND THAT HAS MALODOROUS DRAINAGE-PHOTO TAKEN AND CLEANSED WITH SOAP AND [id number] FOAM DRESSING. RIGHT QUADRANT WITH WOUND OOZING LARGE AMOUNT OF PURULENT DRAINAGE. SLOUGH NOTED WELL. CLEANSED WITH SOAP AND WATER AFTER WOUND PHOTO TAKEN AND THEN FOAM DRESSING APPLIED. PT PLACED IN ISOLATION AND BINEX TEST REQUESTED HX-RENAL TRANSPLANT ON IMMUNOSUPPRESANTS AND ALSO HX COVID.
[2020-09-29 19:23] LABS: Source, Urine Catheter
[2020-09-29 19:28] LABS: Bilirubin, Urine Neg (Neg); Blood, Urine 5+ (Neg); Glucose Qualitative, Urine Neg (Neg); Ketones, Urine 1+ (Neg); Leukocyte Esterase, Urine 3+ (Neg); Nitrite, Urine Neg (Neg); Protein, Urine 4+ (Neg); Specific Gravity, Urine 1.015 (1.003-1.022); Urobilinogen, Urine NORM (Normal)
[2020-09-29 19:42] LABS: U Amphetamine Screen Not Detected; U Barbituate Screen Not Detected; U Benzodiazapine Screen Not Detected; U Buprenorphine Screen Not Detected; U Cannabinoids Screen Not Detected; U Cocaine Screen Not Detected; U Methadone Screen Not Detected; U Methamphetamine Screen Not Detected; U Opiates Screen Not Detected; U Oxycodone Screen DETECTED; U Phencyclidine Screen Not Detected; U Propoxyphene Screen Not Detected
[2020-09-29 19:53] LABS: Influenza A, PCR NEGATIVE (NEGATIVE); Influenza B, PCR NEGATIVE (NEGATIVE); Resp Syncytial Virus, PCR NEGATIVE (NEGATIVE)
[2020-09-29 19:54] LABS: Appearance, Urine Turbid (Clear); Color, Urine Pale Yellow (P-Yellow); White Blood Cells, Urine TNTC /hpf (0-5)
[2020-09-29 19:56] LABS: Bacteria Many /hpf; Squamous Epithelial Cells Few /hpf (Few)
[2020-09-29 20:46] LABS: Magnesium, Blood 1.9 mg/dL (1.6-2.4); Potassium, Blood 3.2 mmol/L (3.5-5.5); Thyroid Stimulating Hormone 0.876 uIU/mL (0.360-4.800)
[2020-09-29 21:15] LABS: SARS-Cov-2 (COVID-19) PCR, MMC POSITIVE (NEGATIVE)
[2020-09-30 04:19] LABS: Hematocrit 30.5 % (33.0-51.0); Hemoglobin 8.6 g/dL (11.5-16.0); Mean Corpuscular HGB 26.5 pg (26.0-34.0); Mean Corpuscular HGB Conc 28.2 g/dL (31.5-36.5); Mean Corpuscular Volume 94 fL (80-100); Mean Platelet Volume 9.8 fL (9.1-12.4); NRBC ABSOLUTE 0.26 K/mm3 (0.00-0.02); NRBC Auto 1.7 /100 WBC (0.0-0.2); Platelet Count 244 K/mm3 (150-400); RDW Coefficient Variation 18.2 % (11.7-14.2); RDW Standard Deviation 62.4 fL (35.1-46.3); Red Blood Cell Count 3.25 M/mm3 (3.80-5.20); White Blood Cell Count 15.59 K/mm3 (4.00-11.30)
[2020-09-30 04:37] LABS: Albumin, Blood 2.2 g/dL (3.4-5.0); Albumin/Globulin Ratio 0.6 (0.8-1.8); Bilirubin, Total 0.5 mg/dL (0.1-1.0); Calcium, Blood 8.5 mg/dL (8.5-10.1); Creatinine, Blood 2.99 mg/dL (0.40-1.00); Globulin, Blood 3.7 g/dL (2.2-4.0); Magnesium, Blood 1.9 mg/dL (1.6-2.4); Potassium, Blood 3.4 mmol/L (3.5-5.5); Total Protein, Blood 5.9 g/dL (6.4-8.2)
[2020-09-30 04:42] LABS: BAND PERCENT MAN 13 % (0-8); BASOPHILS PERCENT MAN 0 % (0-2); EOSINOPHILS PERCENT MAN 0 % (0-6); LYMPHOCYTES ABSOLUTE MAN 0.31 K/mm3 (0.84-5.20); LYMPHOCYTES PERCENT MAN 2 % (21-46); METAMYELOCYTE ABSOLUTE MAN 0.15 K/mm3 (0.00-0.00); METAMYELOCYTE PERCENT MAN 1 % (0-0); MONOCYTES PERCENT MAN 9 % (4-13); NEUTROPHILS ABSOLUTE MAN 13.71 K/mm3 (1.96-9.15); SEG NEUTROPHILS PERCENT MAN 75 % (41-73); TOTAL CELLS COUNTED 100
[2020-09-30 05:52] LABS: PO2 Arterial 197 mmHg (80-100)
[2020-09-30 05:53] LABS: PCO2 Arterial 76.8 mmHg (35-45); pH Blood Arterial 7.14 (7.35-7.45)
--- NOTE | 2020-09-30 07:38 | NUR ---
SHIFT SUMMARY ASSUMED CARE OF PT @ 1900, DAY SHIFT NURSES IN ROOM ASSISTING WITH PATIENT. PT ALERT TO PERSON, SLOW TO FOLLOW COMMANDS. DUE TO INADEQUATE VENOUS ACCESS, DR SLATER CALLED AND ESTABLISHED A CENTRAL LINE. LEVOPHED AND VASOPRESSIN TRANSITIONED FROM PERIPHERAL IV TO CENTRAL ACCESS. PTS BP CONTINUED TO REMAIN LOW AND DIFFICULT TO OBTAIN. LEVOPHED TITRATED TO MAX, BP REMAINS LOW. CONFIRMED HYPOTENSION WITH MANUAL BP. DR SLATER NOTIFIED, ARTERIAL ACCESS DISCUSSED WITH DAUGHTER BEE, PT, AND DR SLATER. PT AND FAMILY CURRENTLY WANT TO DO EVERYTHING WE CAN, OTHER THAN INTUBATION, FEEDING TUBE, AND CPR. ART LINE ESTABLISHED, LEVOPHED AND VASOPRESSIN @ MAX RATE. T/O THE NIGHT PT REMAINED ON 6 LPM VIA OXYMIZER c O2 SATS >90%. SECONDARY TO ABG RESULTS THIS AM, PT TRANSITIONED TO BIPAP, TOLERATING BUT APPEARING UNCOMFORTABLE WITH BIPAP. TEMP WILKINS CATH IN PLACE, DRAINING MINISCULE AMOUNT OF THICK, GREYISH WHITE URINE.
--- NOTE | 2020-09-30 08:00 | NUR ---
PT REMAINS ON BIPAP. OPENS EYES TO VERBAL STIMULI. TUCKER, BUT EXTREMELY WEAK. SKIN IN DUSKY AND EXTREMITIES ARE MOTTLED. PT GIVEN BRIEF BREAK FROM BIPAP FOR ORAL CARE AND TO WASH THE FACE-PT MOANING, CRYING, AND STATES "IT HURTS!" PT NOT ABLE TO STATE WHERE SHE IS HURTING. MED WITH DILAUDID 0.5 MG IVP X1 AND REPOSITIONED TO COMFORT. ECG SHOWS AF WITH RATE 100-110'S. LEVOPHED TITRATED UP TO 25 MCG/MIN TO KEEP MAP [id number] CONTINUES @ 0.04 UNITS/MIN. LUNGS COARSE THROUGH OUT. BIPAP 20/6 FIO2 30% AND SATS>90% NO COUGH NOTED. NPO DUE TO BIPAP. WIKLINS WITH SCANT AMOUNT OF PURULENT, YELLOW URINE OUTPUT. DR. DYER IN TO SEE PT. STAT ABG DONE AND RESULTS GIVEN TO DR. TORRES AND DR. DYER. PH 7.12 AND CO2 82 WHICH IS WORSE. BICARB DRIP @ 75 CC/HR INITIATED PER DR. BENJAMIN ORDER. PALLIATIVE CARE UPDATED. PT DAUGHTER BAY REMAINS AT THE BEDSIDE. SHE HAS BEEN UPDATED THAT PT REQUIRING MORE AND MORE PRESSORS TO MAINTAIN BP AND THAT ABG IS WORSENING. BAY HAS NOTIFIED THE REST OF THE FAMILY. THE PLAN IS TO CONTINUE TREATMENT IS FOR NOW AND RE-EVALUATE FOR COMFORT CARE WHEN THE REST OF THE FAMILY ARRIVES.
[2020-09-30 08:20] LABS: PO2 Arterial 79.9 mmHg (80-100)
[2020-09-30 08:23] LABS: PCO2 Arterial 82 mmHg (35-45); pH Blood Arterial 7.12 (7.35-7.45)
--- NOTE | 2020-09-30 12:00 | NUR ---
PT RESTING QUIETLY ON BIPAP WHEN NOT DISTURBED. CONTINUES ON VASOPRESSORS-NO CHANGE. PT DAUGHTER REMAINS AT THE BEDSIDE. EXPECTING THE ARRIVAL OF PT 2 OTHER DAUGHTERS. AT THAT TIME, PT TO BE MADE COMFORT CARE-PER [place] APROXIMATELY 1999.
--- NOTE | 2020-09-30 16:00 | NUR ---
PT CONTINUES ON BIPAP-SATS>90% LUNGS COARSE THROUGH OUT. PT OPENS EYES AND GRIMACING WITH VERBAL STIMULI. MED WITH MORPHINE 5 MG IVP X 1, THEN PT REPOSITIONED TO COMFORT-TOELRATED WELL. NO CHANGE IN PRESSOR REQUIREMENTS. MULTIPLE FAMILY MEMBERS AT THE BEDSIDE. AWAITING THE ARRIVAL OF ONE MORE DAUGHTER LATER KIM 1999, THEN PLAN TO STOP PRESSORS AND MAKE PT COMFORT CARE.
--- NOTE | 2020-09-30 17:30 | NUR ---
Met with pt's daughter Eleanor bradleytide of the room. Identified myself as Palliative Care nurse. We talked for a while about how quickly the pt had a change in condition. She reports pt was up to see her Son who was an earlier Covid patient who ended up receiving ECMO earlier this year at [facility]. Eleanor took her mom, the patient up to see pt earlier this week. When they returned, pt became "very sleepy", and never recovered. Pt has again tested positive, unsure is this is a repeat case or not. Precautions remain in place. Eleanor understands pt's condition is worsening, and is immenent. She also is hopeful that pt can "hang on" until her brother, pt's son can drive down from [place]. He is expected to be arriving at 8pm tonight. However, Eleanor does understand this may not be possible, and does not wish to initiate any new treatments for pt. Nursing staff and hospitalist aware.
--- NOTE | 2020-09-30 18:25 | NUR ---
PT GIVEN BED BATH AND PARTIAL LINEN CHANGE COMPLETED. TOLERATED WELL. PT STILL ON LEVOPHED @ 30 MCG/MIN AND VASOPRESSIN @ 0.04 UNITS/MIN. EXTREMITIES WITH MOTTLING THAT APPEARS WORSE THAN PREVIOUS ASSESSMENT. THE PLAN IS TO CHANGE PT TO COMFORT CARE LATER THIS EVENING.
--- NOTE | 2020-09-30 19:45 | NUR ---
SHIFT ASSESSMENT ASSUMED CARE OF PT @ 1900. PT RESTING QUIETLY IN HER ROOM, APPEARS TO BE COMFORTABLE, RECENTLY MEDICATED WITH MORPHINE. PT WITH MINIMAL RESPONSE TO VERBAL STIMULI, DIFFICULT TO DETERMINE IF SHE IS FOLLOWING COMMANDS BY SQUEEZING HANDS DUE TO EXTREME WEAKNESS. FAMILY STATES SHE WAS ABLE TO SQUEEZE THEIR HANDS ABOUT AN HOUR AGO, AROUND 1800. CURRENTLY ON BIPAP, LEVOPHED, AND VASOPRESSIN, SEE FLOWSHEET FOR RATES. ARTERIAL LINE PATENT, BP MAINTAINED BY PRESSORS. CENTRAL LINE PATENT. WILKNIS CATH WITH SCANT OUTPUT. CURRENTLY AWAITING THE REST OF PTS FAMILY TO ARRIVE TO TRANSITION TO COMFORT CARE. WILL CONTINUE TO MONITOR CLOSELY.
--- NOTE | 2020-09-30 22:28 | NUR ---
DEPARTED NOTE PTS FAMILY AT BEDSIDE, REQUESTED TO INITIATE COMFORT MEASURES @ 2049. PT MEDICATED WITH 10MG MORPHINE AND PRESSORS DISCONTINUED @ 2053, BIPAP REMOVED. THIS NURSE AT BEDSIDE UNTIL ARTERIAL BLOOD PRESSURE UNOBTAINABLE. PT APPEARED TO BE AT [place] c FAMILY AT BEDSIDE. TIME OF @ 2219, FAMILY AT BEDSIDE, MONITOR SHOWS ASYSTOLE, NO PULSE, NO RESPIRATIONS, UNABLE TO AUSCULTATE HEART SOUNDS. HOSPITALIST NOTIFIED.
== END 2020-09-30 22:20 | DRG 871 ==
LOC: ER 13:06 → ICUW 15:51
PROVIDERS: Emergency Medicine; Internal Medicine; Internal Medicine Nephrology; ADMIT Internal Medicine
PROC: 02HV33Z Insertion of Infusion Device into Superior Vena Cava, Percutaneous Approach (ICD-10-PCS; principal; 2020-09-29)
PROC: 04HY32Z Insertion of Monitoring Device into Lower Artery, Percutaneous Approach (ICD-10-PCS; 2020-09-29)
PROC: 4A133B1 Monitoring of Arterial Pressure, Peripheral, Percutaneous Approach (ICD-10-PCS; 2020-09-29)
PROC: 4A133J1 Monitoring of Arterial Pulse, Peripheral, Percutaneous Approach (ICD-10-PCS; 2020-09-29)
PROC: 3E033XZ Introduction of Vasopressor into Peripheral Vein, Percutaneous Approach (ICD-10-PCS; 2020-09-29)
PROC: 8E0ZXY6 Isolation (ICD-10-PCS; 2020-09-29)
DX: A41.9 Sepsis, unspecified organism (principal); L89.153 Pressure ulcer of sacral region, stage 3; N18.6 End stage renal disease; J96.02 Acute respiratory failure with hypercapnia; R65.21 Severe sepsis with septic shock; U07.1 COVID-19; I13.2 Hypertensive heart and chronic kidney disease with heart failure and with stage 5 chronic kidney disease, or end stage renal disease; I50.32 Chronic diastolic (congestive) heart failure; E87.1 Hypo-osmolality and hyponatremia; E44.0 Moderate protein-calorie malnutrition; I48.20 Chronic atrial fibrillation, unspecified; Z94.0 Kidney transplant status; J96.11 Chronic respiratory failure with hypoxia; E87.2 Acidosis; I35.0 Nonrheumatic aortic (valve) stenosis; M54.5 Low back pain; G89.29 Other chronic pain; D63.1 Anemia in chronic kidney disease; E11.22 Type 2 diabetes mellitus with diabetic chronic kidney disease; E78.5 Hyperlipidemia, unspecified; E21.3 Hyperparathyroidism, unspecified; E87.6 Hypokalemia; E88.9 Metabolic disorder, unspecified; M10.9 Gout, unspecified; Z99.2 Dependence on renal dialysis; Z90.49 Acquired absence of other specified parts of digestive tract; Z98.51 Tubal ligation status; Z98.890 Other specified postprocedural states; Z79.01 Long term (current) use of anticoagulants; Z79.899 Other long term (current) drug therapy
CPT/HCPCS: 0241U; 36415; 36556; 36600; 36620; 51702; 71045; 80053; 81001; 82803; 82947; 83605; 83735; 83880; 84100; 84132; 84145; 84443; 84484; 85025; 87086; 93005; 93010; 94660; 96365; 96366; 96375; 99285-25; A9270; A9270-GY; C1751; J0696; J0881; J1170; J1720; J2270; J2405; J2543; J3370; J3480; J7030; J7060; J7070; J7512; P9612